=== PATIENT | male | born 1930 | race Caucasian/White ===

== ENCOUNTER 2016-11-30 07:30 | Emergency (ER) | payer MEDICARE, MEDICAID ==
[2016-11-30] MEDS ORDERED: Acetaminophen/HYDROcodone 325-5 MG Tab PO ONE (08:15)
--- NOTE | 2016-11-30 08:36 | EDM.PDOC ---
ED HPI GENERAL MEDICAL PROBLEM - General Chief Complaint: Back Pain or Injury Stated Complaint: BACK PAIN TROUBLE BREATHING Time Seen by Provider: 11/30/16 07:43 Source of Information: Reports: Patient History Limitations: Reports: No Limitations - History of Present Illness INITIAL COMMENTS - FREE TEXT/NARRATIVE: The patient is an 86-year-old male with a history of multiple medical problems who comes in today with upper back pain. 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 The pain is constant, sharp, located in the middle of his upper back, worse with movement, especially arm movements. He feels a little bit short of breath from the pain. Mild pain in his back with deep inspiration. No cough. No numbness or tingling. He also has bilateral shoulder pain, which she has had for a long time and is also severe. He's been taking tramadol for pain with not much relief. He also tried physical therapy this last week but states that it was very painful and seemed to make it worse instead of better. No fever or recent illness, no chest pain or cough. No falls. Lives with family members. Was unable to get into see his primary doctor this morning so came here. Middle Back Pain Score (Numeric/FACES): 8 - Related Data Allergies Allergy/AdvReac Type Severity Reaction Status Date / Time No Known Allergies Allergy Verified 11/30/16 07:37 Home Meds: Home Meds Acetaminophen [Tylenol Arthritis Pain] 650 mg PO Q6H PRN 06/07/14 [History] Amiodarone [Cordarone] 200 mg PO DAILY 06/07/14 [History] RX: Carvedilol [Coreg] 12.5 mg PO BID 06/07/14 [History] RX: Furosemide [Lasix] 60 mg PO DAILY 06/07/14 [History] RX: Levothyroxine 200 mcg PO ACBRK 06/07/14 [History] Warfarin [Coumadin] 4 mg PO SUTUTHSA 06/07/14 [History] atorvaSTATin [Lipitor] 10 mg PO BEDTIME 06/07/14 [History] RX: traMADol [Ultram] 50 tab PO BID PRN 03/12/15 [History] Hydrocodone/Acetaminophen [Hydrocodon-Acetaminophen 5-325] 1 each PO TID PRN # 15 tablet 11/30/16 [Rx] Spironolactone [Aldactone] 12.5 mg PO DAILY 11/30/16 [History] Warfarin [Coumadin] 2 mg PO MOWEFR 11/30/16 [History] Past Medical History Cardiovascular History: Reports: Arrhythmia, Automatic Implantable Cardioverter Defibrillators, Cardiomyopathy, High Cholesterol, Pacemaker, Prior Cardiac Arrest Other Cardiovascular History: About 12 years ago Genitourinary History: Reports: Prostate Disorder Other Genitourinary History: takes diuretics Musculoskeletal History: Reports: Arthritis Endocrine/Metabolic History: Reports: Hypothyroidism Hematologic History: Reports: Other (See Below) Other Hematologic History: coumadin therapy - Past Surgical History Cardiovascular Surgical History: Reports: AICD, Pacer Social & Family History - Family History Cardiac: Reports: [place] - Tobacco Use Smoking Status *Q: Former Smoker Years of Tobacco use: 30 Used Tobacco, but Quit: No Month Tobacco Last Used: 04/1969 Second Hand Smoke Exposure: No - Alcohol Use Days Per Week of Alcohol Use: 7 Number of Drinks Per Day: 1 Total Drinks Per Week: 7 - Recreational Drug Use Recreational Drug Use: No ED ROS GENERAL - Review of Systems Review Of Systems: See Below Constitutional: Denies: Fever Respiratory: Reports: Shortness of Breath Cardiovascular: Denies: Chest Pain Endocrine: Reports: No Symptoms GI/Abdominal: Denies: Abdominal Pain Musculoskeletal: Reports: Shoulder Pain, Back Pain Skin: Reports: No Symptoms Neurological: Denies: Paresthesia, Tingling, Weakness ED EXAM, UPPER BACK/NECK PAIN - Physical Exam Exam: See Below Exam Limited By: No Limitations General Appearance: Alert, WD/WN, No Apparent Distress Eye Exam: Bilateral Eye: Normal Inspection Ears Exam: Normal External Exam Nose Exam: Normal Inspection Throat/Mouth Exam: Normal Inspection, Normal Voice, No Airway Compromise Head Exam: Atraumatic, Normocephalic Neck Exam: Non-Tender, Full Range of Motion, Normal Alignment, Normal Inspection Cardiovascular/Respiratory: Regular Rate, Rhythm, Normal Breath Sounds, No Respiratory Distress, Other (no anterior chest wal tenderness) GI/Abdominal: Soft, Non-Tender. No: Rebound Back Exam: Other (skin normal, no masses/deformities, +midline TTP lower thoracic spine,no step offs/deformities, +paraspinal TTP throughout lower T spine bilat, skin normal, no fluctuance) Extremities: Normal Inspection, Other (bilat shoulder pain with any ROM of the arms, no shoulder deformity) Neurologic: No Motor/Sensory Deficits, Alert, Normal Mood/Affect, Oriented x 3 Psychiatric: Normal Affect, Normal Mood Skin Exam: Normal Color, Warm/Dry Course - Vital Signs Last Recorded V/S: Last Vital Signs Temp 36.3 C 11/30/16 07:37 Pulse 83 11/30/16 07:37 Resp 20 11/30/16 07:37 BP 139/95 H 11/30/16 07:37 Pulse Ox 94 L 11/30/16 07:37 - Orders/Labs/Meds Meds: Medications Discontinued Medications Generic Name Dose Route Start Last Admin Trade Name Freq PRN Reason Stop Dose Admin Hydrocodone Bitart/Acetaminophen 1 tab 11/30/16 08:15 11/30/16 08:43 [place] 325-5 Mg PO 11/30/16 08:16 1 tab ONETIME ONE Administration - Re-Assessments/Exams Free Text/Narrative Re-Assessment/Exam: 11/30/16 10:12 Chest x-ray shows no acute abnormality, cardiomegaly similar to prior. Thoracic spine x-rays showed to compression deformities that do appear to be worse compared to prior imaging. I suspect that these may be the source of the patient 's pain, though there is no history of fall or direct trauma. His history and exam definitely suggest a musculoskeletal etiology. He was given a hydrocodone here in the emergency department and had significant relief of his pain. Discussed risks of these medications at length, given elderly patient with multiple comorbidities there are certainly asks associated with using stronger pain medications, however patient has been miserable with pain and would like to try the hydrocodone which he will use sparingly. He does live with family members who can help him out at home. Also suggested that he follow-up with Dr. Hurd and Dr. Cornell for further care. Discussed return precautions. Departure - Departure Time of Disposition: 10:03 Disposition: Home, Self-Care 01 Clinical Impression: Compression of thoracic vertebra Qualifiers: Encounter type: initial encounter Fracture type: closed Qualified Code(s): S22.000A - Wedge compression fracture of unspecified thoracic vertebra, initial encounter for closed fracture - Discharge Information Prescriptions: Hydrocodone/Acetaminophen [Hydrocodon-Acetaminophen 5-325] 1 each PO TID PRN # 15 tablet PRN Reason: Pain Referrals: Kiel Cornell MD [Primary Care Provider] - Forms: ED Department Discharge Additional Instructions: 1. Take hydrocodone as needed for pain INSTEAD of tramadol - don't take both a the same time. Be aware that this medication may make you more sleepy, dizzy, or unsteady on your feet. 2. Rest. No heavy lifting. No more physical therapy until cleared by Dr. Cornell. 3. Follow up with Dr. Hurd to discuss whether any intervention for compression deformities in your spine might be beneficial. You may call [phone] to schedule with him. 4. Also follow up with Dr. Cornell early next week if possible. 5. Return to the Emergency Department if you have worsening pain, shortness of breath, chest pain, difficulty walking, or any other concerning symptoms.
--- NOTE | 2016-11-30 09:37 | CR ---
Chest: Two views of the chest were obtained. Comparison: Previous chest x-ray of 09/15/15. Heart is enlarged. Tortuous thoracic aorta is seen. AICD is present. Lungs are clear with no acute infiltrates. Bony structures are grossly intact. There is evidence of previous vertebroplasty within the upper lumbar spine. Impression: 1. Incidental findings as noted above which are stable. Nothing acute is appreciated. Diagnostic code #2
--- NOTE | 2016-11-30 09:47 | CR ---
Thoracic spine: AP, lateral and swimmer's views of the thoracic spine were obtained. Comparison: Previous CT thoracic spine study of 03/12/15. Scoliosis is present within the spine. Diffuse endplate osteophytes are seen. Two moderately severe severe compression deformities are seen within the mid thoracic spine which has increased in severity from previous exam. Other vertebral body heights appear maintained. Bony structures are osteopenic. Impression: 1. Two moderately severe compression deformities within the mid thoracic spine which have progressed in severity from prior studies. 2. Mild scoliosis and degenerative change as well as osteopenia. Diagnostic code #3
[2016-11-30 10:27] VITALS: BP 128/82
== END 2016-11-30 10:29 | disposition home or self-care (01) ==
LOC: JD.ED 07:30
DX: S22.000A Wedge compression fracture of unspecified thoracic vertebra, initial encounter for closed fracture (principal); E78.00 Pure hypercholesterolemia, unspecified; E03.9 Hypothyroidism, unspecified; Z79.899 Other long term (current) drug therapy; Z79.01 Long term (current) use of anticoagulants; Z87.891 Personal history of nicotine dependence; X58.XXXA Exposure to other specified factors, initial encounter
CPT/HCPCS: 71020; 72072; 99283; A9270

== ENCOUNTER 2016-12-14 18:09 | Emergency (ER) | payer MEDICARE, MEDICAID ==
--- NOTE | 2016-12-14 19:21 | EDM.PDOC ---
ED HPI GENERAL MEDICAL PROBLEM - General Chief Complaint: Respiratory Problem Stated Complaint: FLUID COMING OFF LEGS Time Seen by Provider: 12/14/16 18:41 Source of Information: Reports: Patient, Family (daughters) History Limitations: Reports: No Limitations - History of Present Illness INITIAL COMMENTS - FREE TEXT/NARRATIVE: 86-year-old gentleman presents for evaluation and treatment of drainage from the left lower leg. Reports that it started earlier today. Reports clear drainage from the left lower leg. He denies any erythema to the leg. He denies any pain to leg but he is on narcotic pain medication for chronic back pain. The patient is on Coumadin for A. fib. He has been off his Coumadin since Saturday as he is planning on having a kyphoplasty done in [place] on Saturday. Chronic edema to the bilateral legs. Patient has a significant cardiac history. He has an implanted pacemaker. Has significant heart failure and sees cardiology regularly. Reports he checks his weight daily but did not do so today. Treatments CLIENT EXPERIENCE SPECIALIST: Reports: Other (see below) Other Treatments CLIENT EXPERIENCE SPECIALIST: percocet qid Lower Leg Pain Score (Numeric/FACES): 3 - Related Data Allergies Allergy/AdvReac Type Severity Reaction Status Date / Time No Known Allergies Allergy Verified 11/30/16 07:37 Home Meds: Home Meds Acetaminophen [Tylenol Arthritis Pain] 650 mg PO Q6H PRN 06/07/14 [History] Amiodarone [Cordarone] 200 mg PO DAILY 06/07/14 [History] Carvedilol [Coreg] 12.5 mg PO BID 06/07/14 [History] Furosemide [Lasix] 60 mg PO DAILY 06/07/14 [History] Levothyroxine 200 mcg PO ACBRK 06/07/14 [History] Warfarin [Coumadin] 4 mg PO SUTUTHSA 06/07/14 [History] atorvaSTATin [Lipitor] 10 mg PO BEDTIME 06/07/14 [History] traMADol [Ultram] 50 tab PO BID PRN 03/12/15 [History] Spironolactone [Aldactone] 12.5 mg PO DAILY 11/30/16 [History] Warfarin [Coumadin] 2 mg PO MOWEFR 11/30/16 [History] Enoxaparin [Lovenox] 84 mg SUBCUT Q12HR #9 syringe 12/14/16 [Rx] Hydrocodone/Acetaminophen [Hydrocodon-Acetaminophen 5-325] 1 each PO QID PRN [History] Past Medical History Cardiovascular History: Reports: Arrhythmia, Automatic Implantable Cardioverter Defibrillators, Cardiomyopathy, High Cholesterol, Pacemaker, Prior Cardiac Arrest Other Cardiovascular History: About 12 years ago Genitourinary History: Reports: Prostate Disorder Other Genitourinary History: takes diuretics Musculoskeletal History: Reports: Arthritis Endocrine/Metabolic History: Reports: Hypothyroidism Hematologic History: Reports: Other (See Below) Other Hematologic History: coumadin therapy - Past Surgical History Cardiovascular Surgical History: Reports: AICD, Pacer Social & Family History - Family History Cardiac: Reports: [place] - Tobacco Use Smoking Status *Q: Former Smoker Years of Tobacco use: 30 Used Tobacco, but Quit: Yes Month Tobacco Last Used: 1963 Second Hand Smoke Exposure: No - Caffeine Use Caffeine Use: Reports: Coffee, Soda, Tea - Alcohol Use Days Per Week of Alcohol Use: 7 Number of Drinks Per Day: 1 Total Drinks Per Week: 7 - Recreational Drug Use Recreational Drug Use: No ED ROS GENERAL - Review of Systems Review Of Systems: See Below Constitutional: Reports: Other (did not weigh self todya; normal daily weights) . Denies: Fever Respiratory: Reports: Shortness of Breath (chronic) Cardiovascular: Reports: Edema. Denies: Chest Pain Musculoskeletal: Denies: Leg Pain Skin: Reports: Other (reports clear drainage from several spots on the left lower leg) ED EXAM, GENERAL - Physical Exam Exam: See Below Exam Limited By: No Limitations General Appearance: Alert, WD/WN, No Apparent Distress Respiratory/Chest: Other (tachypneaic, labored breathing) Cardiovascular: Other (dorsalis pedis and posterior tibialis pulses obscured by edema) Extremities: Pedal Edema (3+ pitting edema bilaterally) Neurological: Alert, Oriented, Normal Cognition Psychiatric: Normal Affect, Normal Mood Skin Exam: Warm, Dry, Normal Color. No: Erythema EKG INTERPRETATION EKG Date: 12/14/16 Time: 18:45 EKG Interpretation Comments: ventricular paced rhythm at 75 bpm. LBBB. Reviewed by myself and Dr. Stratton. Course - Vital Signs Last Recorded V/S: Last Vital Signs Temp 36.6 C 12/14/16 18:26 Pulse 81 12/14/16 23:30 Resp 22 H 12/14/16 23:30 BP 147/74 H 12/14/16 23:30 Pulse Ox 95 12/14/16 23:30 - Orders/Labs/Meds Labs: Laboratory Tests 12/14/16 12/14/16 12/14/16 Range/Units 19:10 19:19 19:19 WBC 5.29 (4.23-9.07) K/mm3 RBC 3.43 L (4.63-6.08) M/mm3 Hgb 11.8 L (13.7-17.5) gm/L Hct 36.5 L (40.1-51.0) % MCV 106.4 H (79.0-92.2) fl MCH 34.4 H (25.7-32.2) pg MCHC 32.3 (32.2-35.5) g/dl RDW Std Deviation 55.3 H (35.1-43.9) fL Plt Count 295 (163-337) K/mm3 MPV 8.7 L (9.4-12.3) fl Neutrophils % (Manual) 77 H (40-60) % Band Neutrophils % 0 (0-10) % Lymphocytes % (Manual) 18 L (20-40) % Atypical Lymphs % 0 % Monocytes % (Manual) 3 (2-10) % Eosinophils % (Manual) 2 (0.8-7.0) % Basophils % (Manual) 0 L (0.2-1.2) Platelet Estimate Adequate Poikilocytosis 1+ slight Anisocytosis 1+ slight PT 18.8 H (8.0-13.0) SECONDS INR 1.67 Sodium 138 (136-145) mEq/L Potassium 4.6 (3.5-5.1) mEq/L Chloride 105 (98-107) mEq/L Carbon Dioxide 24 (21-32) mEq/L Anion Gap 13.6 (5-15) BUN 27 H (7-18) mg/dL Creatinine 1.3 (0.7-1.3) mg/dL Est Cr Clr Drug Dosing 41.54 mL/min Estimated GFR (MDRD) 52 (>60) mL/min BUN/Creatinine Ratio 20.8 H (14-18) Glucose 121 H (83-115) mg/dL Calcium 8.6 (8.5-10.1) mg/dL Total Bilirubin 0.5 (0.2-1.0) mg/dL AST 31 (15-37) U/L ALT 32 (16-63) U/L Alkaline Phosphatase 96 (46-116) U/L [id number] Pept 5392 H (0-450) pg/mL Total Protein 6.3 L (6.4-8.2) g/dl Albumin 3.0 L (3.4-5.0) g/dl Globulin 3.3 gm/dL Albumin/Globulin Ratio 0.9 L (1-2) Meds: Medications Discontinued Medications Generic Name Dose Route Start Last Admin Trade Name Freq PRN Reason Stop Dose Admin Enoxaparin Sodium 84 mg 12/14/16 22:08 12/14/16 23:20 Lovenox SUBCUT 12/14/16 22:09 Not Given ONETIME ONE Enoxaparin Sodium 84 mg 12/14/16 22:55 12/14/16 23:05 Lovenox SUBCUT 12/14/16 22:56 84 mg ONETIME ONE Administration - Radiology Interpretation Free Text/Narrative:: left leg duplex ultrasound impression per [facility]: Deep venous thrombosis of the left popliteal vein. chest xray shows significant cardiomegaly. implanted pace maker present. - Re-Assessments/Exams Free Text/Narrative Re-Assessment/Exam: 12/15/16 22:32 Labs returned. Hear failure is significant with a pro-BNP of 5392 and significant cardiomegaly on chest xray. Case discussed with dr. Stratton. Recommended canceling his surgery planned for Saturday. Restart his coumadin at his previous dose and bridge 5 days with lovenox bid. I reviewed the labs and imaging studies with the patient and his daughters. Lovenox subQ ordered for the ER tonight. Daughters feel he should be admitted. I had nursing staff run an [facility] on his case. He does not qualify for inpatient. I informed them I can talk to the hospitalist about an observation stay, however, this could be costly. I feel he is safe going home. One of the daughters is able to administer the lovenox for him and they have his coumadin at home. Decided to discharge him home tonight. Discharge instructions as documented. Departure - Departure Time of Disposition: 22:36 Disposition: Home, Self-Care 01 Condition: Fair Clinical Impression: Deep venous thrombosis Qualifiers: DVT location: lower extremity Affected thrombotic vein of extremity: popliteal Chronicity: unspecified Laterality: left Qualified Code(s): I82.432 - Acute embolism and thrombosis of left popliteal vein - Discharge Information Prescriptions: Enoxaparin [Lovenox] 84 mg SUBCUT Q12HR #9 syringe Instructions: Deep Vein Thrombosis Referrals: Kiel Cornell MD [Primary Care Provider] - Forms: ED Department Discharge Additional Instructions: Restart your Coumadin tonight. Take the Lovenox as prescribed. one subcutaneous injection twice a day for 5 days. your first injection was given in the ER tonight. Your next injection should be tomorrow morning around 10:30. Continue with your current plan of care. I recommend you follow-up with your primary care provider this week for a recheck of your symptoms. Please return to the ER if your symptoms change or worsen.
[2016-12-14] MEDS ORDERED: Enoxaparin 80 MG/0.8 ML Syringe SUBCUT ONE (22:08)
[2016-12-14] MEDS ORDERED: Enoxaparin 100 MG/1 ML Syringe SUBCUT ONE (22:55)
[2016-12-15 00:57] VITALS: BP 147/74
--- NOTE | 2016-12-18 10:32 | CR ---
Chest: Frontal view of the chest was obtained. Comparison: Previous chest x-ray of 11/30/16. Heart is enlarged. AICD is present. Mild atherosclerotic change is noted within an ectatic aorta. Lungs are clear. Bony structures are osteopenic. Findings of chronic rotator cuff tears are partially seen within both shoulders. Impression: 1. Stable findings as described above. Nothing acute is appreciated. Diagnostic code #2
--- NOTE | 2016-12-18 10:32 | US ---
Left lower extremity deep venous ultrasound: Duplex and color flow imaging was obtained of the left common femoral, proximal greater saphenous, superficial femoral, popliteal, posterior tibial and peroneal veins. Right common femoral vein was also evaluated. Findings: Echogenic material is identified within the left popliteal vein. This is most likely due to old thrombus. Other veins show normal phasic flow, augmentation and compression. Impression: 1. 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 2. No additional abnormality is identified on left lower extremity deep venous ultrasound exam. Diagnostic code #3 Mostly agree with preliminary report issued by [facility], I believe thrombus within the left popliteal vein is old and fibrotic, ([facility] preliminary report dictated on 12/14/16, 10:08 PM Central Time)
== END 2016-12-14 23:30 | disposition home or self-care (01) ==
LOC: JD.ED 18:09
DX: I82.432 Acute embolism and thrombosis of left popliteal vein (principal); E03.9 Hypothyroidism, unspecified; Z79.01 Long term (current) use of anticoagulants; Z79.899 Other long term (current) drug therapy; E78.00 Pure hypercholesterolemia, unspecified; Z95.0 Presence of cardiac pacemaker; Z87.891 Personal history of nicotine dependence; Z95.810 Presence of automatic (implantable) cardiac defibrillator
CPT/HCPCS: 36415; 71010; 80053; 83880; 85025; 85610; 93005; 93971; 96372; 99285; J1650; 99284

== ENCOUNTER 2017-10-24 15:43 | Emergency (ER) | payer MEDICAID, MEDICARE ==
[2017-10-24 16:05] VITALS: BP 114/91
--- NOTE | 2017-10-24 17:20 | EDM.PDOC ---
ED HPI GENERAL MEDICAL PROBLEM - General Chief Complaint: Back Pain or Injury Stated Complaint: FELL AND HURT BACK AND ELBOWS Time Seen by Provider: 10/24/17 17:09 Source of Information: Reports: Patient History Limitations: Reports: No Limitations - History of Present Illness INITIAL COMMENTS - FREE TEXT/NARRATIVE: 86-year-old male presents to the ED after a fall at home. He states he was bending over into his closet 2 per crop picker his shoes. He stood back up and fell directly backwards. He believes he struck his right upper back on a doorknob. He did not hit his head on the floor did not lose consciousness. He also fell on his bike and has some pain in his right posterior buttock and hip area. He can still walk. The problem is he is on Coumadin and bruits bruises very easily. He has had numerous compression fractures in his thoracic spine in clinic kyphoplasty 1. His heart is so bad that they cannot do any further surgery on him. He has a defibrillator pacemaker in place. He suffered skin tears to both aspects of his elbows from the fall as he landed on his elbows as well. Onset: Today Onset Date: 10/24/17 Onset Time: 15:25 Duration: Minutes: Location: Reports: Back (Left upper back right lower back.), Upper Extremity, Left, Upper Extremity, Right (Skin tear left elbow area skin tear right elbow area.) Quality: Reports: Ache, Throbbing Severity: Moderate (I'll dictate his left upper back adjacent to his shoulder blade and right buttock hip area.) Improves with: Reports: None Worsens with: Reports: Movement (Movement and walking hurts worse. He states pain isn't as bad now as it was initially.) Context: Reports: Trauma (Fall at home.) Associated Symptoms: Reports: Shortness of Breath. 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) (None.) Back Pain Score (Numeric/FACES): 2 - Related Data Allergies Allergy/AdvReac Type Severity Reaction Status Date / Time No Known Allergies Allergy Verified 06/28/18 16:05 Home Meds: Home Meds Acetaminophen [Tylenol Arthritis Pain] 650 mg PO Q6H PRN 06/07/14 [History] Amiodarone [Cordarone] 200 mg PO DAILY 06/07/14 [History] Carvedilol [Coreg] 12.5 mg PO BID 06/07/14 [History] Furosemide [Lasix] 60 mg PO DAILY 06/07/14 [History] Levothyroxine 200 mcg PO ACBRK 06/07/14 [History] Warfarin [Coumadin] 4 mg PO SUTUTHSA 06/07/14 [History] atorvaSTATin [Lipitor] 10 mg PO BEDTIME 06/07/14 [History] traMADol [Ultram] 50 tab PO BID PRN 03/12/15 [History] Spironolactone [Aldactone] 12.5 mg PO DAILY 11/30/16 [History] Warfarin [Coumadin] 2 mg PO MOWEFR 11/30/16 [History] Enoxaparin [Lovenox] 84 mg SUBCUT Q12HR #9 syringe 12/14/16 [Rx] Hydrocodone/Acetaminophen [Hydrocodon-Acetaminophen 5-325] 1 each PO QID PRN [History] Past Medical History Cardiovascular History: Reports: Arrhythmia, Automatic Implantable Cardioverter Defibrillators, Cardiomyopathy, High Cholesterol, Pacemaker, Prior Cardiac Arrest Other Cardiovascular History: About 12 years ago Genitourinary History: Reports: Prostate Disorder Other Genitourinary History: takes diuretics Musculoskeletal History: Reports: Arthritis, Osteoarthritis, Osteoporosis, Other (See Below) (Patient has had multiple compression fractures in his thoracic and lumbar spine. He's had kyphoplasty 1.) Endocrine/Metabolic History: Reports: Hypothyroidism Hematologic History: Reports: Other (See Below) Other Hematologic History: coumadin therapy - Past Surgical History Cardiovascular Surgical History: Reports: AICD, Pacer Social & Family History - Family History Cardiac: Reports: [place] - Caffeine Use Caffeine Use: Reports: Coffee, Soda, Tea - Living Situation & Occupation Living situation: Reports: Occupation: Retired ED ROS GENERAL - Review of Systems Review Of Systems: See Below Constitutional: Reports: Malaise, Fatigue. Denies: Fever, Chills, Weight Loss HEENT: Reports: Glasses, Hearing Loss Respiratory: Reports: Shortness of Breath (Mildly hard of hearing.), Cough ( Nonproductive). Denies: Wheezing, Pleuritic Chest Pain Cardiovascular: Reports: Blood Pressure Problem, Dyspnea on Exertion ( Chronically), Edema, Lightheadedness (Often gets lightheaded when he stands up.) . Denies: Claudication, Orthopnea (On medication for his blood pressure) Endocrine: Reports: Fatigue (Lower extremities at times) GI/Abdominal: Reports: Constipation : Reports: Frequency, Other (Known BPH. Nocturia usually 3) Musculoskeletal: Reports: Back Pain (Left upper back pain more in the midline but adjacent to the left scapula also pain right lower back on the iliac crest buttock area.), Other (Skin tears to both elbow areas today.) Skin: Reports: Other (Patient suffered skin tears to both elbows from his fall today.) Neurological: Reports: Dizziness (Happens quite often when he stands up. Clinically has a component of vertebrobasilar insufficiency. I suspect that when he looks up or down he may lose his balance), Difficulty Walking (Walks with difficulty due to arthritic changes in his hips and knees.) Psychiatric: Reports: No Symptoms Hematologic/Lymphatic: Reports: No Symptoms Immunologic: Reports: No Symptoms ED EXAM, UPPER BACK/NECK PAIN - Physical Exam Exam: See Below Exam Limited By: No Limitations General Appearance: Alert, WD/WN, Mild Distress Eye Exam: Bilateral Eye: Normal Inspection Head Exam: Atraumatic, Normocephalic Neck Exam: Non-Tender, Normal Alignment, Normal Inspection, Limited Range of Motion (Limited range of motion.). No: Painful Range of Motion, Paraspinous Muscle Tender Nexus Criteria: No: Posterior, Midline Cervical Tenderness ( He states this is normal range. Has no pain in his neck), Painful Distraction Injuries Cardiovascular/Respiratory: Regular Rate, Rhythm, No M/R/G, Normal Peripheral Pulses, Other (He has a defibrillator pacemaker implanted left upper anterior chest.) GI/Abdominal: Normal Bowel Sounds, Soft, Non-Tender, No Organomegaly, No Abnormal Bruit, No Mass Back Exam: Other (Examination of the back reveals a hematoma and bruising occurring adjacent to his thoracic 34 and 5 vertebra left upper back adjacent to the scapula. There is a hematoma proximally 6 cm in length and 3 cm in width. On his right lower back there is a mild bruise forming over the posterior iliac crest. Pain localized to that area. He has pain to poke palpation of his lumbar spine as he fell seek first as well as his back.) Extremities: Other (He has full pronation supination of both wrists and elbows. He has skin tears to his elbows that are superficial and nothing that is amenable to sutures.) Neurologic: No Motor/Sensory Deficits, Alert, Normal Mood/Affect, Oriented x 3 Psychiatric: Normal Affect Skin Exam: Other (He has multiple ecchymoses from being on Coumadin especially on his dorsal hands and forearms. Skin tear to the left forearm elbow area is worse than the right one. It is approximately 2.5 cm in length and a good half centimeter in width. Skin is been peeled and will be debrided off. Enteric to the right elbow is approximately 1.5 cm in length and 4 mm in width. It is very superficial. Once be cleansed and topical antibiotic placed. They will not be Steri-Stripped.) Course - Vital Signs Last Recorded V/S: Last Vital Signs Temp 36.7 C 10/24/17 16:01 Pulse 61 10/24/17 16:01 Resp 18 10/24/17 16:01 BP 114/91 H 10/24/17 16:01 Pulse Ox 95 10/24/17 16:01 - Orders/Labs/Meds Orders: Active Orders 24 hr Category Date Time Status Lumbar Spine wo Cont [CT] Stat Exams 10/24/17 17:09 Taken Thoracic Spine wo Cont [CT] Stat Exams 10/24/17 17:09 Taken - Radiology Interpretation Free Text/Narrative:: 86-year-old male presents to the ED for evaluation after a fall at home. He states he was bending over into his closet to get his shoes and when he stood back up he fell directly backwards. He hit the door with the doorknob to his left upper back adjacent to thoracic 34 and 5 vertebra and adjacent to his left scapula. He also fell seat first and has some pain over his right buttock particular the posterior iliac crest and upper buttock area. Examination reveals hematoma forming over the left upper back and midline lower thoracic 34 and 5. Minimal bruising is appreciated in his right lower buttock. He has pain throughout palpation of his thoracic and lumbar spine. He is known to have at least 2 if not 3 compression fractures in his back and he said previous kyphoplasty he has superficial skin tears to both elbows from his falls which will be cleansed and topical antibiotic placed. The nothing that is amenable to suturing. Plan will be to CT his thoracic and lumbar spine. - Re-Assessments/Exams Free Text/Narrative Re-Assessment/Exam: 10/24/17 18:28: CT of his thoracic and lumbar spine reveals advanced degenerative changes throughout. No acute fractures are identified. There is a old compression fracture at thoracic 6 and at lumbar 2. Compression fracture at T6 estimated to be at least 50% with increased density of the vertebral body. Coincidentally there are cystic changes noted within the left kidney which is very atrophic. Lumbar spine demonstrates extensive moderate degenerative changes at multiple levels. There is anterior bridging noted at L1 and L2 with near ankylosis. Vacuum disc phenomenon present at at L3-L4 and L4-L5 levels. Moderate disc space narrowing noted L3-L4 and L4-L5 and L5-S1 levels. Facet joint arthropathy noted at multiple levels. Also a compression fracture at lumbar 2. Of note there is sclerosis of the right sacral alae. Degenerative changes are appreciated throughout both SI joints as well. Vasculature demonstrates diffuse moderate atherosclerotic calcification. There is been previous vertebral plasty changes in the mid body of L2. No new fractures are identified. Patient and daughter reassured. He will be discharged to home to continue his current medications. He is on high-dose pain medications at this time I will continue them as needed. Follow-up with primary care physician if any further problems occur Departure - Departure Time of Disposition: 17:59 Disposition: Home, Self-Care 01 Condition: Fair (Fall at home) Clinical Impression: Fall as cause of accidental injury at home as place of occurrence Qualifiers: Encounter type: initial encounter Qualified Code(s): W19.XXXA - Unspecified fall, initial encounter Contusion of upper back excluding scapular region Qualifiers: Encounter type: initial encounter Laterality: left Qualified Code(s): S20.222A - Contusion of left back wall of thorax, initial encounter - Discharge Information Instructions: Contusion Referrals: Kiel Cornell MD [Primary Care Provider] - Forms: ED Department Discharge Additional Instructions: Evaluation in the emergency room today in regards to a fall at home. Us assess suspect this is due to vertebrobasilar insufficiency which means when you touch her head all the way down or bend over and then stand up or tilts her head all the way backwards U Lucier balance causing her to fall backwards. This is what occurred at home today. Luckily he did not hit the back of your head. You have a contusion to left upper back over the upper back bones and musculature adjacent to the shoulder blade on the left side. There is a hematoma or collection of blood forming under the skin in this area because of being on Coumadin. Really hurt her lower back primarily the right hip area. There is a small bruise coming up in this area as well. CTs of your thoracic and lumbar spine were carried out in the emergency department. They show no new fractures. You have terrible degenerative arthritis throughout the entire thoracic and lumbar spine. You have compression fractures of thoracic 6 and lumbar 2 vertabrae. But again the hip itself looked okay in the pelvis is intact. He suffered skin tears to both elbow areas. These wounds were cleansed and debrided and treatment is to daily cleanse the areas with soap and water and apply topical antibiotic such as bacitracin or Polysporin to the wounds once or twice daily until they are healed. Continue all current medications as before. - My Orders Last 24 Hours: My Active Orders 10/24/17 17:09 Lumbar Spine wo Cont [CT] Stat Thoracic Spine wo Cont [CT] Stat - Assessment/Plan Last 24 Hours: My Active Orders 10/24/17 17:09 Lumbar Spine wo Cont [CT] Stat Thoracic Spine wo Cont [CT] Stat
--- NOTE | 2017-10-25 07:07 | CT ---
CT lumbar spine Technique: Prior lumbar spine plain film study of 06/07/14. Findings: Compression deformity is seen of L2. This has worsened from prior plain film study but shows evidence of vertebroplasty cement and is therefore likely old. Vacuum phenomena is noted within the L3-L4, L4-L5 and L5-S1 discs. Evidence of annular rupture with a small amount of epidural air is seen posterior to L3. Severe disc space narrowing is noted at L5-S1. Posterior disc space narrowing noted at L3-L4 and L4-L5. Other vertebral body heights are maintained. Posterior vertebral line shows posterior bulging by about 7 mm into the central canal. Finding causes mild central canal stenosis. Degenerative change is noted within the apophyseal joints most prominent at L3-L4 and L4-L5. No fracture is seen. No abnormal spondylolisthesis is seen. Degenerative change noted within both sacroiliac joints. Incidental atherosclerotic calcification is seen within the aortoiliac vessels. Right adrenal nodule is seen measuring 2.6 cm in size. This is identified on prior abdominal and pelvic CT study of 11/25/12 and appears stable and is therefore incidental. Impression: 1. 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 2. Degenerative change as noted above. 3. No acute fracture or acute subluxation is seen. Diagnostic code #3 Agree with preliminary report issued by [facility] ([facility] preliminary report dictated on 10/24/17, 7:35 PM Central Time)
--- NOTE | 2017-10-25 07:11 | CT ---
CT thoracic spine Technique: Multiple axial sections through the thoracic spine were obtained. Reconstructed coronal and sagittal images were obtained. Comparison: Previous plain film thoracic spine study of 11/30/16. Findings: Severe compression deformity is seen of T6. Moderately severe compression deformities at T4 and T5 are noted. T4 and T5 compression deformities appear to be old with T6 compression deformity being an interval change from previous study. Other vertebral body heights within the thoracic spine are maintained. Scattered disc space narrowing is noted within the cervical and thoracic spine. Mild retrolisthesis of the posterior vertebral line is seen at T6 by approximately 3.4 mm. No central canal stenosis is seen. Scattered degenerative change is noted throughout the apophyseal joints. No discrete bony neural foraminal stenosis is seen within the thoracic spine. Multilevel neural foraminal stenosis is seen within the cervical spine. Diffuse endplate osteophytes are seen. Incidental 2.7 cm cyst seen within left kidney. Stable right adrenal mass is noted. Impression: 1. Moderately severe compression deformities noted at T4 and T5 which appears stable. 2. Severe compression deformity of T6 which is an interval change from most recent thoracic spine study of 11/30/16. 3. Diffuse degenerative change within the cervical spine and thoracic spine. 4. Other incidental findings. Diagnostic code #3 Agree with preliminary report issued by [facility] ([facility] preliminary report dictated on 10/24/17, 7:40 PM Central Time)
== END 2017-10-24 18:20 | disposition home or self-care (01) ==
LOC: JD.ED 15:43
DX: S20.222A Contusion of left back wall of thorax, initial encounter (principal); Z79.899 Other long term (current) drug therapy; Z95.810 Presence of automatic (implantable) cardiac defibrillator; W18.39XA Other fall on same level, initial encounter; Y92.009 Unspecified place in unspecified non-institutional (private) residence as the place of occurrence of the external cause; Z79.01 Long term (current) use of anticoagulants
CPT/HCPCS: 72128; 72128-26; 72131; 72131-26; 99284-25

== ENCOUNTER 2017-11-04 12:19 | Inpatient (IN) | payer MEDICARE ==
--- NOTE | 2017-11-04 12:59 | EDM.PDOC ---
ED HPI GENERAL MEDICAL PROBLEM - General Chief Complaint: Back Pain or Injury Stated Complaint: BACK PAIN Time Seen by Provider: 11/04/17 12:56 Source of Information: Reports: Patient, Family (daughter) History Limitations: Reports: Physical Impairment (acute on chronic back pain) - History of Present Illness INITIAL COMMENTS - FREE TEXT/NARRATIVE: Christian is a pleasant 86yo male presents with his daughter for worsening back pain, intractable, weakness and multiple falls at home over the past few weeks, last one being last evening. He has been seen in [facility] with bone scan done last week according to daughter. Also according to daughter "his hear is so bad they can't do anything". He was placed on MS Contin every 12 hours in addition to his already scheduled tramadol and percocet. This is not helping his pain and pain is worsening over the past 2 days. He is urinating without problems, however he is not taking his diuretic as directed as it is "too hard for him to get to the bathroom" according to his daughter. He is moving his bowels, taking a stool softner but stool is "hard". No abd pain or nausea. No numbness/tingling to legs. He is very weak in his legs. He was last seen in this ED, seen by Dr. Stratton with worsening of chronic back pain after fall at home striking his mid back on the door knob and landing on his buttock. CT scans done on that date 10/24/17 showed old kyphoplasty at L2, moderate to severe but stable old compression fractures at T4-5, severe compression fracture to T6 with interval change from prior study done 11/30/17. It is after this that he was seeing specialist in [place]. Dr. Conrell is his PCP. He is living at home with and daughter caring for him. is also in poor health and daughter is unable to provide 24/7 care at this time. Onset: Gradual Duration: Week(s):, Chronic, Getting Worse Improves with: Reports: Rest Worsens with: Reports: Other (recurrent falls at home) Context: Reports: Trauma, Other (recurrent falls at home) lower back Pain Score (Numeric/FACES): 9 - Related Data Allergies Allergy/AdvReac Type Severity Reaction Status Date / Time No Known Allergies Allergy Verified 11/04/17 12:42 Home Meds: Home Meds Acetaminophen [Tylenol Arthritis Pain] 650 mg PO Q6H PRN 06/07/14 [History] Amiodarone [Cordarone] 200 mg PO DAILY 06/07/14 [History] Carvedilol [Coreg] 12.5 mg PO BID 06/07/14 [History] Furosemide [Lasix] 60 mg PO DAILY 06/07/14 [History] Levothyroxine 200 mcg PO ACBRK 06/07/14 [History] Warfarin [Coumadin] 4 mg PO SUTUTHSA 06/07/14 [History] atorvaSTATin [Lipitor] 10 mg PO BEDTIME 06/07/14 [History] traMADol [Ultram] 50 tab PO BID PRN 03/12/15 [History] Spironolactone [Aldactone] 12.5 mg PO DAILY 11/30/16 [History] Warfarin [Coumadin] 2 mg PO MOWEFR 11/30/16 [History] Acetaminophen/oxyCODONE [Percocet 325-5 MG] 1 each PO Q6H PRN 11/04/17 [History] Morphine [MS Contin] 15 mg PO BID 11/04/17 [History] Past Medical History HEENT History: Reports: Hard of Hearing, Impaired Vision Cardiovascular History: Reports: Arrhythmia, Automatic Implantable Cardioverter Defibrillators, Cardiomyopathy, High Cholesterol, Pacemaker, Prior Cardiac Arrest Other Cardiovascular History: About 12 years ago Genitourinary History: Reports: Prostate Disorder Other Genitourinary History: takes diuretics Musculoskeletal History: Reports: Arthritis, Back Pain, Chronic, Osteoarthritis , Osteoporosis, Other (See Below) Endocrine/Metabolic History: Reports: Hypothyroidism Hematologic History: Reports: Other (See Below) Other Hematologic History: coumadin therapy - Past Surgical History Cardiovascular Surgical History: Reports: AICD, Pacer Musculoskeletal Surgical History: Reports: Other (See Below) Other Musculoskeletal Surgeries/Procedures:: cement to spinal column Social & Family History - Family History Family Medical History: Noncontributory Cardiac: Reports: OK - Tobacco Use Smoking Status *Q: Former Smoker Used Tobacco, but Quit: No - Caffeine Use Caffeine Use: Reports: Coffee - Recreational Drug Use Recreational Drug Use: No - Living Situation & Occupation Living situation: Reports: Occupation: Retired ED ROS GENERAL - Review of Systems Review Of Systems: See Below Constitutional: Reports: Weakness, Fatigue, Decreased Appetite HEENT: Reports: No Symptoms Respiratory: Reports: No Symptoms. Denies: Shortness of Breath Cardiovascular: Reports: Dyspnea on Exertion (chronic- stable), Other (hx of CAD , AICD). Denies: Chest Pain, Lightheadedness, Palpitations GI/Abdominal: Reports: No Symptoms : Reports: No Symptoms Musculoskeletal: Reports: Back Pain (chronic- worsening; mid to low back) Skin: Reports: Bruising (multiple- on coumadin) Neurological: Reports: Pre-Existing Deficit (weakness but worsening), Difficulty Walking (worsening), Weakness (lower legs), Gait Disturbance (lower leg weakness and back pain). Denies: Numbness, Paresthesia, Tingling Psychiatric: Reports: No Symptoms Hematologic/Lymphatic: Reports: Easy Bruising (on coumadin) ED EXAM,LOWER BACK PAIN/INJURY - Physical Exam Exam: See Below Exam Limited By: No Limitations General Appearance: Alert, WD/WN, No Apparent Distress, Other (resting comfortably laying flat on stretcher) Eye Exam: Bilateral Eye: EOMI, PERRL Ears: Normal External Exam Nose: Normal Inspection Throat/Mouth: Normal Inspection, Normal Lips, Normal Voice Head: Atraumatic, Normocephalic Neck: Normal Inspection Respiratory/Chest: No Respiratory Distress, Lungs Clear, Normal Breath Sounds, Decreased Breath Sounds (bases) Cardiovascular: Regular Rate, Rhythm, Other (trace edema to right ankle, minimal to left. Skin tear to left knee with old healing skin tears to shins bilat.) GI/Abdominal: Normal Bowel Sounds, Soft, Non-Tender (Male) Exam: Deferred Rectal (Males) Exam: Deferred Back Exam: Normal Inspection, Vertebral Tenderness (mid to low back) Extremities: Normal Inspection, Normal Capillary Refill, Pedal Edema (trace to right ankle, minimal to left) Neurological: Alert Psychiatric: Normal Affect, Normal Mood Skin Exam: Ecchymosis, Wound/Incision (skin tear/abrasion to right knee cap. Healing abrasions to shins and forearms/hands bilaterally) Course - Vital Signs Last Recorded V/S: Last Vital Signs Temp 97.1 F 11/04/17 12:30 Pulse 67 11/04/17 14:09 Resp 20 11/04/17 14:09 BP 117/82 11/04/17 14:09 Pulse Ox 96 11/04/17 14:09 - Orders/Labs/Meds Orders: Active Orders 24 hr Category Date Time Status UA W/MICROSCOPIC [URIN] Stat Lab 11/04/17 15:05 Ordered Sodium Chloride 0.9% [Normal Saline] 1,000 ml Med 11/04/17 13:30 Active IV ASDIRECTED Medication Orders Sodium Chloride (Normal Saline) 1,000 mls @ 100 mls/hr IV ASDIRECTED KINJAL Last Admin: 11/04/17 14:09 Dose: 100 mls/hr Labs: Laboratory Tests 11/04/17 11/04/17 11/04/17 Range/Units 14:05 14:05 15:05 WBC 6.45 (4.23-9.07) K/mm3 RBC 3.56 L (4.63-6.08) M/mm3 Hgb 12.0 L (13.7-17.5) gm/L Hct 38.5 L (40.1-51.0) % MCV 108.1 H (79.0-92.2) fl MCH 33.7 H (25.7-32.2) pg MCHC 31.2 L (32.2-35.5) g/dl RDW Std Deviation 52.2 H (35.1-43.9) fL Plt Count 271 (163-337) K/mm3 MPV 9.0 L (9.4-12.3) fl Neut % (Auto) 74.9 H (34.0-67.9) % Lymph % (Auto) 12.6 L (21.8-53.1) % [place] % (Auto) 11.3 (5.3-12.2) % Eos % (Auto) 0.5 L (0.8-7.0) Baso % (Auto) 0.2 (0.1-1.2) % Neut # (Auto) 4.84 (1.78-5.38) K/mm3 Lymph # (Auto) 0.81 L (1.32-3.57) K/mm3 [place] # (Auto) 0.73 (0.30-0.82) K/mm3 Eos # (Auto) 0.03 L (0.04-0.54) K/mm3 Baso # (Auto) 0.01 (0.01-0.08) K/mm3 Manual Slide Review Abnormal smear Sodium 141 (136-145) mEq/L Potassium 4.7 (3.5-5.1) mEq/L Chloride 106 (98-107) mEq/L Carbon Dioxide 27 (21-32) mEq/L Anion Gap 12.7 (5-15) BUN 49 H (7-18) mg/dL Creatinine 1.7 H (0.7-1.3) mg/dL Est Cr Clr Drug Dosing 32.80 mL/min Estimated GFR (MDRD) 38 (>60) mL/min BUN/Creatinine Ratio 28.8 H (14-18) Glucose 111 (83-115) mg/dL Calcium 8.3 L (8.5-10.1) mg/dL Magnesium 2.3 (1.8-2.4) mg/dl Total Bilirubin 0.6 (0.2-1.0) mg/dL AST 38 H (15-37) U/L ALT 35 (16-63) U/L Alkaline Phosphatase 85 (46-116) U/L C-Reactive Protein 2.2 H* (<1.0) mg/dL Total Protein 6.2 L (6.4-8.2) g/dl Albumin 2.7 L (3.4-5.0) g/dl Globulin 3.5 gm/dL Albumin/Globulin Ratio 0.8 L (1-2) Urine Color Yellow (Yellow) Urine Appearance Clear (Clear) Urine pH 6.5 (5.0-8.0) Ur Specific [place] 1.020 (1.005-1.030) Urine Protein Negative (Negative) Urine Glucose (UA) Negative (Negative) Urine Ketones Negative (Negative) Urine Occult Blood Negative (Negative) Urine Nitrite Negative (Negative) Urine Bilirubin Negative (Negative) Urine Urobilinogen 4.0 H (0.2-1.0) Ur Leukocyte Esterase Negative (Negative) Urine RBC Not seen (0-5) /hpf Urine WBC 0-5 (0-5) /hpf Ur Epithelial Cells 0-5 (0-5) /hpf Urine Bacteria Not seen (FEW) /hpf Urine Mucus Not seen (FEW) /hpf Meds: Medications Generic Name Dose Route Start Last Admin Trade Name Freq PRN Reason Stop Dose Admin Sodium Chloride 1,000 mls @ 100 mls/hr 11/04/17 13:30 11/04/17 14:09 Normal Saline IV 100 mls/hr ASDIRECTED KINJAL Administration Discontinued Medications Generic Name Dose Route Start Last Admin Trade Name Marty PRN Reason Stop Dose Admin Morphine Sulfate 2 mg 11/04/17 13:23 11/04/17 14:09 Morphine IVPUSH 11/04/17 13:24 2 mg ONETIME ONE Administration - Re-Assessments/Exams Free Text/Narrative Re-Assessment/Exam: 11/04/17 15:13 Pain 7/10 initially lying flat on cart, states "a 7 is good". 2mg Morphine IVP given and pain down to 1. Nursing reports pain at 10/10 with movements and attempts to get UA. Free Text/Narrative Re-Assessment/Exam: 11/04/17 15:56 Case discussed and reviewed with Dr. Huerta. He is in agreement to admission for intractable back pain, weakness, frequent falls at home. Labs pending due to multiple traumas immediately after patient arrived. MCG meets for inpatient due to need for IV pain medication, which I feel will be needed initially to control his pain. Patient will be admitted inpatient for above noted dx. Departure - Departure Time of Disposition: 15:58 Disposition: Admitted As Inpatient 67 Condition: Fair Clinical Impression: Intractable low back pain, Frequent falls, Generalized weakness - Discharge Information Referrals: Kiel Cornell MD [Primary Care Provider] - Forms: ED Department Discharge - My Orders Last 24 Hours: My Active Orders 11/04/17 13:30 Sodium Chloride 0.9% [Normal Saline] 1,000 ml IV ASDIRECTED 11/04/17 15:05 UA W/MICROSCOPIC [URIN] Stat - Assessment/Plan Last 24 Hours: My Active Orders 11/04/17 13:30 Sodium Chloride 0.9% [Normal Saline] 1,000 ml IV ASDIRECTED 11/04/17 15:05 UA W/MICROSCOPIC [URIN] Stat
[2017-11-04] MEDS ORDERED: Morphine 2 MG/ML Syringe IVPUSH ONE (13:23)
[2017-11-04] MEDS: Sodium Chloride 0.9% 1,000 ML IV SCH (14:09)
[2017-11-04] MEDS: Morphine 2 MG/ML Syringe IVPUSH PRN (16:09)
[2017-11-04] MEDS ORDERED: Promethazine 6.25 MG in Sodium Chloride 0.9% 50 ML IV PRN (17:59)
[2017-11-04] MEDS ORDERED: Magnesium Hydroxide 400 MG/5 ML Susp 30 ML Cup PO PRN (17:59)
[2017-11-04] MEDS ORDERED: Acetaminophen 325 MG Tab PO PRN (17:59)
[2017-11-04] MEDS ORDERED: Bisacodyl 5 MG Tab PO PRN (17:59)
[2017-11-04] MEDS ORDERED: Docusate Sodium 100 MG Cap PO PRN (17:59)
[2017-11-04] MEDS ORDERED: Polyethylene Glycol 3350 Powder 17 GM Packet PO PRN (17:59)
[2017-11-04] MEDS ORDERED: Promethazine 25 MG Tab PO PRN (17:59)
[2017-11-04] MEDS ORDERED: Albuterol/Ipratropium 3.0-0.5 MG/3 ML Neb Soln NEB PRN (17:59)
[2017-11-04] MEDS ORDERED: HYDROmorphone 0.5 MG/0.5 ML SYRINGE IVPUSH ONE (18:24)
--- NOTE | 2017-11-04 18:29 | PCM.HP ---
<Ava Harris - Last Filed: 11/04/17 19:02> H&P History of Present Illness - General Date of Service: 11/04/17 Admit Problem/Dx: Admission Diagnosis/Problem Admission Diagnosis/Problem Intractable back pain Source of Information: Patient, Family, Old Records - History of Present Illness Initial Comments - Free Text/Narative: This is an 86 y/o male with PMHx significant for cardiomyopathy, arrhythmia with AICD and hx of previous cardiac arrest, HLD, chronic back pain, OA, osteoporosis, hypothyroidism, chronic anticoagulation therapy, and impaired vision who comes in intractable low back pain. Patient was previously seen in the ED on 10/24/[address] scans performed at that time and read as old kyphoplasty at L2, moderate to severe but stable old comopression fractures at T4-5, severe compression fracture to T6 with interval change from prior study done 11/30/16. He has seen a specialist in [place], [place] with bone scan done last week according to his daughter. His work-up in the ED included CBC that was remarkable for Hgb 12.0, MCV 108.1, 74.9% neutrophils. CMP remarkable for BUN 49, Cr 1.7, eGFR 38, Calcium 8.3, albumin 2.7. CRP was 2.2. UA negative for UTI. Patient reports that he has been experiencing worsening acute on chronic back pain. Family also reports that patient has become very weak and has had multiple falls at home with last one being yesterday evening. Family present state that patient has multiple medical problems and is unable to take care of himself at this point in time. He denies any incontinence. He does endorse some constipation with taking pain medications. He admits to not taking his diuretic as directed secondary to it being too difficult to get to the bathroom. He is subsequently admitted to Med/Surg with Tele. He is a former smoker. Code status is CPR with DNI. PCP is Dr. Cornell. lower back Pain Score (Numeric/FACES): 9 - Related Data Allergies/Adverse Reactions: Allergies Allergy/AdvReac Type Severity Reaction Status Date / Time No Known Allergies Allergy Verified 11/04/17 12:42 Home Medications: Home Meds Acetaminophen [Tylenol Arthritis Pain] 650 mg PO Q6H PRN 06/07/14 [History] Amiodarone [Cordarone] 200 mg PO DAILY 06/07/14 [History] Carvedilol [Coreg] 12.5 mg PO BID 06/07/14 [History] Furosemide [Lasix] 60 mg PO DAILY 06/07/14 [History] Levothyroxine 200 mcg PO ACBRK 06/07/14 [History] Warfarin [Coumadin] 4 mg PO SUTUTHSA 06/07/14 [History] atorvaSTATin [Lipitor] 10 mg PO BEDTIME 06/07/14 [History] traMADol [Ultram] 50 tab PO BID PRN 03/12/15 [History] Spironolactone [Aldactone] 12.5 mg PO DAILY 11/30/16 [History] Warfarin [Coumadin] 2 mg PO MOWEFR 11/30/16 [History] Acetaminophen/oxyCODONE [Percocet 325-5 MG] 1 each PO Q6H PRN 11/04/17 [History] Morphine [MS Contin] 15 mg PO BID 11/04/17 [History] Past Medical History HEENT History: Reports: Hard of Hearing, Impaired Vision Cardiovascular History: Reports: Arrhythmia, Automatic Implantable Cardioverter Defibrillators, Cardiomyopathy, Heart Failure, High Cholesterol, Pacemaker, Prior Cardiac Arrest Other Cardiovascular History: About 12 years ago Genitourinary History: Reports: Prostate Disorder, Other (See Below) Other Genitourinary History: "large prostate" Musculoskeletal History: Reports: Arthritis, Back Pain, Chronic, Osteoarthritis , Osteoporosis, Other (See Below) Endocrine/Metabolic History: Reports: Hypothyroidism Hematologic History: Reports: Other (See Below) Other Hematologic History: coumadin therapy Oncologic (Cancer) History: Reports: Other (See Below) Other Oncologic History: hx of skin cancer, removed it-no chemo/radiation. - Infectious Disease History Infectious Disease History: Reports: Chicken Pox - Past Surgical History Cardiovascular Surgical History: Reports: AICD, Pacer Endocrine Surgical History: Reports: None Musculoskeletal Surgical History: Reports: Other (See Below) Other Musculoskeletal Surgeries/Procedures:: cement to spinal column lower back Dermatological Surgical History: Reports: Skin Biopsy Social & Family History - Family History Family Medical History: Noncontributory Cardiac: Reports: [place] - Tobacco Use Smoking Status *Q: Former Smoker Used Tobacco, but Quit: Yes Month/Year Tobacco Last Used: 1962 - Caffeine Use Caffeine Use: Reports: Coffee - Recreational Drug Use Recreational Drug Use: No - Living Situation & Occupation Living situation: Reports: Occupation: Retired H&P Review of Systems - Review of Systems: Review Of Systems: See Below General: Reports: Weakness, Fatigue HEENT: Reports: No Symptoms Pulmonary: Reports: No Symptoms. Denies: Shortness of Breath, Wheezing Cardiovascular: Reports: Dyspnea on Exertion (chronic and stable ), Edema ( worsening with not taking diuretics as directed ). Denies: Chest Pain, Palpitations Gastrointestinal: Reports: Constipation. Denies: Abdominal Pain, Diarrhea, Nausea, Vomiting Genitourinary: Reports: Frequency (with diuretic therapy but this has decreased with not taking diuretic as directed ). Denies: Dysuria, Burning Musculoskeletal: Reports: Back Pain (severe with movement, acute on chronic that is worsening ) Skin: Reports: Bruising (on warfarin therapy ) Psychiatric: Reports: No Symptoms Neurological: Reports: No Symptoms, Weakness, Gait Disturbance (secondary to pain ). Denies: Confusion, Dizziness, Numbness, Paresthesia Hematologic/Lymphatic: Reports: Easy Bruising (on warfarin therapy ) Immunologic: Reports: No Symptoms Exam - Exam Exam: See Below - Vital Signs Vital Signs: Last Vital Signs Temp 97.1 F 11/04/17 12:30 Pulse 67 11/04/17 17:47 Resp 14 11/04/17 17:47 BP 139/71 11/04/17 17:47 Pulse Ox 94 L 11/04/17 17:47 Weight: 86.183 kg - Exam Quality Assessment: No: Supplemental Oxygen General: Alert, Oriented, Cooperative, Mild Distress (winces with movement ) HEENT: EOMI, Pupils Equal, Pupils Reactive Neck: Supple, Trachea Midline. No: Lymphadenopathy Lungs: Clear to Auscultation, Normal Respiratory Effort Cardiovascular: Regular Rate, Regular Rhythm, Normal S1, Normal S2 GI/Abdominal Exam: Normal Bowel Sounds, Non-Tender, Distended (mild ), Other ( mild hyperresonance to percussion ) (Male) Exam: Deferred Rectal (Males) Exam: Deferred Back Exam: Decreased Range of Motion, Vertebral Tenderness Extremities: Normal Inspection, Pedal Edema (2+ b/l LE ) Peripheral Pulses: 1+: Posterior Tibial (L), Posterior Tibial (R), Dorsalis Pedis (L), Dorsalis Pedis (R), 2+: Radial (L), Radial (R) Skin: Warm, Dry, Intact, Ecchymosis Neurological: Cranial Nerves Intact, Strength Equal Bilateral Neuro Extensive - Mental Status: Alert, Oriented x3, Normal Mood/Affect, Normal Cognition, Memory Intact Psychiatric: Alert, Normal Affect, Normal Mood - Patient Data Lab Results Last 24 hrs: Laboratory Results - last 24 hr 11/04/17 11/04/17 11/04/17 Range/Units 14:05 14:05 15:05 WBC 6.45 (4.23-9.07) K/mm3 RBC 3.56 L (4.63-6.08) M/mm3 Hgb 12.0 L (13.7-17.5) gm/L Hct 38.5 L (40.1-51.0) % MCV 108.1 H (79.0-92.2) fl MCH 33.7 H (25.7-32.2) pg MCHC 31.2 L (32.2-35.5) g/dl RDW Std Deviation 52.2 H (35.1-43.9) fL Plt Count 271 (163-337) K/mm3 MPV 9.0 L (9.4-12.3) fl Neut % (Auto) 74.9 H (34.0-67.9) % Lymph % (Auto) 12.6 L (21.8-53.1) % [place] % (Auto) 11.3 (5.3-12.2) % Eos % (Auto) 0.5 L (0.8-7.0) Baso % (Auto) 0.2 (0.1-1.2) % Neut # (Auto) 4.84 (1.78-5.38) K/mm3 Lymph # (Auto) 0.81 L (1.32-3.57) K/mm3 [place] # (Auto) 0.73 (0.30-0.82) K/mm3 Eos # (Auto) 0.03 L (0.04-0.54) K/mm3 Baso # (Auto) 0.01 (0.01-0.08) K/mm3 Manual Slide Review Abnormal smear Sodium 141 (136-145) mEq/L Potassium 4.7 (3.5-5.1) mEq/L Chloride 106 (98-107) mEq/L Carbon Dioxide 27 (21-32) mEq/L Anion Gap 12.7 (5-15) BUN 49 H (7-18) mg/dL Creatinine 1.7 H (0.7-1.3) mg/dL Est Cr Clr Drug Dosing 32.80 mL/min Estimated GFR (MDRD) 38 (>60) mL/min BUN/Creatinine Ratio 28.8 H (14-18) Glucose 111 (83-115) mg/dL Calcium 8.3 L (8.5-10.1) mg/dL Magnesium 2.3 (1.8-2.4) mg/dl Total Bilirubin 0.6 (0.2-1.0) mg/dL AST 38 H (15-37) U/L ALT 35 (16-63) U/L Alkaline Phosphatase 85 (46-116) U/L C-Reactive Protein 2.2 H* (<1.0) mg/dL Total Protein 6.2 L (6.4-8.2) g/dl Albumin 2.7 L (3.4-5.0) g/dl Globulin 3.5 gm/dL Albumin/Globulin Ratio 0.8 L (1-2) Urine Color Yellow (Yellow) Urine Appearance Clear (Clear) Urine pH 6.5 (5.0-8.0) Ur Specific [place] 1.020 (1.005-1.030) Urine Protein Negative (Negative) Urine Glucose (UA) Negative (Negative) Urine Ketones Negative (Negative) Urine Occult Blood Negative (Negative) Urine Nitrite Negative (Negative) Urine Bilirubin Negative (Negative) Urine Urobilinogen 4.0 H (0.2-1.0) Ur Leukocyte Esterase Negative (Negative) Urine RBC Not seen (0-5) /hpf Urine WBC 0-5 (0-5) /hpf Ur Epithelial Cells 0-5 (0-5) /hpf Urine Bacteria Not seen (FEW) /hpf Urine Mucus Not seen (FEW) /hpf Result Diagrams: 11/04/17 14:05 11/04/17 14:05 Problem List Initiated/Reviewed/Updated: Yes Orders Last 24hrs: Active Orders 24 hr Category Date Time Status Admission Status [Patient Status] [ADT] Routine ADT 11/04/17 15:59 Active Bedrest Bedside Commode [RC] ASDIRECTED Care 11/04/17 17:59 Ordered Cardiac Monitoring [RC] INTERMITTENT Care 11/04/17 18:00 Ordered Height and Weight [RC] DAILY Care 11/04/17 17:59 Ordered Intake and Output [RC] QSHIFT Care 11/04/17 18:00 Ordered May Shower [RC] ASDIRECTED Care 11/04/17 17:59 Ordered Oxygen Therapy [RC] PRN Care 11/04/17 18:00 Ordered Pulse Oximetry [RC] PRN Care 11/04/17 18:00 Ordered RT Aerosol Therapy [RC] ASDIRECTED Care 11/04/17 18:04 Ordered VTE/DVT Education [RC] PER UNIT ROUTINE Care 11/04/17 18:00 Ordered Vital Signs [RC] Q4H Care 11/04/17 18:00 Ordered Consult to Case Management [CONS] Routine Cons 11/04/17 17:59 Ordered Consult to Zoo Director [CONS] Routine Cons 11/04/17 17:59 Ordered Consult to Spiritual Care [CONS] Routine Cons 11/04/17 17:59 Ordered OT Evaluation and Treatment [CONS] Routine Cons 11/04/17 17:59 Ordered PT Evaluation and Treatment [CONS] Routine Cons 11/04/17 17:59 Ordered Heart Healthy Diet [DIET] Diet 11/04/17 Dinner Active BASIC METABOLIC PANEL,BMP [CHEM] AM Lab 11/05/17 05:11 Ordered BASIC METABOLIC PANEL,BMP [CHEM] AM Lab 11/06/17 05:11 Ordered BASIC METABOLIC PANEL,BMP [CHEM] AM Lab 11/07/17 05:11 Ordered BASIC METABOLIC PANEL,BMP [CHEM] AM Lab 11/08/17 05:11 Ordered BASIC METABOLIC PANEL,BMP [CHEM] AM Lab 11/09/17 05:11 Ordered BASIC METABOLIC PANEL,BMP [CHEM] AM Lab 11/10/17 05:11 Ordered BASIC METABOLIC PANEL,BMP [CHEM] AM Lab 11/11/17 05:11 Ordered CBC WITH AUTO DIFF [HEME] AM Lab 11/05/17 05:11 Ordered CBC WITH AUTO DIFF [HEME] AM Lab 11/06/17 05:11 Ordered CBC WITH AUTO DIFF [HEME] AM Lab 11/07/17 05:11 Ordered CBC WITH AUTO DIFF [HEME] AM Lab 11/08/17 05:11 Ordered CBC WITH AUTO DIFF [HEME] AM Lab 11/09/17 05:11 Ordered CBC WITH AUTO DIFF [HEME] AM Lab 11/10/17 05:11 Ordered CBC WITH AUTO DIFF [HEME] AM Lab 11/11/17 05:11 Ordered UA W/MICROSCOPIC [URIN] Stat Lab 11/04/17 15:05 Ordered Acetaminophen [Tylenol] Med 11/04/17 17:59 Ordered 650 mg PO Q4H PRN Albuterol/Ipratropium [DuoNeb 3.0-0.5 MG/3 ML] Med 11/04/17 17:59 Ordered 3 ml NEB Q4H PRN Amiodarone [Cordarone] Med 11/05/17 09:00 Ordered 200 mg PO DAILY Bisacodyl [Dulcolax] Med 11/04/17 17:59 Ordered 5 mg PO DAILY PRN Carvedilol Med 11/04/17 21:00 Ordered 12.5 mg PO BID Docusate Sodium [Colace] Med 11/04/17 17:59 Ordered 100 mg PO BID PRN Docusate Sodium/Sennosides [Senna Plus] Med 11/04/17 17:59 Ordered 1 tab PO BID PRN Furosemide [Lasix] Med 11/05/17 09:00 Ordered 60 mg PO DAILY Levothyroxine Med 11/05/17 06:00 Ordered 200 mcg PO ACBRK Magnesium Hydroxide [Milk of Magnesia] Med 11/04/17 17:59 Ordered 30 ml PO Q12H PRN Morphine Med 11/04/17 16:00 Active 2 mg IVPUSH Q2H PRN Polyethylene Glycol 3350 [MiraLAX] Med 11/04/17 17:59 Ordered 17 gm PO DAILY PRN Promethazine [Phenergan] Med 11/04/17 17:59 Ordered 25 mg PO Q6H PRN Promethazine [Phenergan] 6.25 mg Med 11/04/17 17:59 Ordered Sodium Chloride 0.9% [Normal Saline] 50 ml IV Q6H Sodium Chloride 0.9% [Normal Saline] 1,000 ml Med 11/04/17 13:30 Active IV ASDIRECTED Spironolactone [Aldactone] Med 11/05/17 09:00 Ordered 12.5 mg PO DAILY Temazepam [Restoril] Med 11/04/17 17:59 Ordered 7.5 mg PO BEDTIME PRN Warfarin [Coumadin] Med 11/04/17 18:15 Ordered 2 mg PO MOWEFR Warfarin [Coumadin] Med 11/05/17 18:07 Ordered 4 mg PO SUTUTHSA atorvaSTATin Med 11/04/17 21:00 Ordered 10 mg PO BEDTIME oxyCODONE Med 11/04/17 17:59 Ordered 5 mg PO Q4H PRN traMADol [Ultram] Med 11/04/17 18:07 Ordered 50 tab PO BID PRN Resuscitation Status Routine Resus Stat 11/04/17 17:48 Ordered Medication Orders Acetaminophen (Tylenol) 650 mg PO Q4H PRN PRN Reason: Pain (Mild 1-3)/fever Albuterol/Ipratropium (Duoneb 3.0-0.5 Mg/3 Ml) 3 ml NEB Q4H PRN PRN Reason: Shortness Of Breath/wheezing Amiodarone HCl (Cordarone) 200 mg PO DAILY KINJAL Bisacodyl (Dulcolax) 5 mg PO DAILY PRN PRN Reason: Constipation Docusate Sodium (Colace) 100 mg PO BID PRN PRN Reason: Constipation Furosemide (Lasix) 60 mg PO DAILY [facility] Sodium Chloride (Normal Saline) 1,000 mls @ 100 mls/hr IV ASDIRECTED KINJAL Last Admin: 11/04/17 14:09 Dose: 100 mls/hr Promethazine HCl 6.25 mg/ (Sodium Chloride) 50.25 mls @ 100 mls/hr IV Q6H PRN PRN Reason: Nausea/Vomiting Levothyroxine Sodium (Levothyroxine) 200 mcg PO ACBRK [facility] Magnesium Hydroxide (Milk Of Magnesia) 30 ml PO Q12H PRN PRN Reason: Constipation Morphine Sulfate (Morphine) 2 mg IVPUSH Q2H PRN PRN Reason: Pain Last Admin: 11/04/17 16:09 Dose: 2 mg Non-Formulary Medication (Atorvastatin) 10 mg PO BEDTIME [facility] Non-Formulary Medication (Carvedilol) 12.5 mg PO BID [facility] Oxycodone HCl (Oxycodone) 5 mg PO Q4H PRN PRN Reason: Pain (moderate 4-6) Polyethylene Glycol (Miralax) 17 gm PO DAILY PRN PRN Reason: Constipation Promethazine HCl (Phenergan) 25 mg PO Q6H PRN PRN Reason: Nausea/Vomiting Senna/Docusate Sodium (Senna Plus) 1 tab PO BID PRN PRN Reason: Constipation Spironolactone (Aldactone) 12.5 mg PO DAILY [facility] Temazepam (Restoril) 7.5 mg PO BEDTIME PRN PRN Reason: Sleep Tramadol HCl (Ultram) mg PO BID PRN PRN Reason: Pain Warfarin Sodium (Coumadin) 2 mg PO MOWEFR KINJAL Warfarin Sodium (Coumadin) 4 mg PO SUTUTHSA [facility] Assessment/Plan Comment:: Acute: Low back pain with intractable pain * CT scans performed at ED visit on 10/24/17 read as old kyphoplasty at L2, moderate to severe but stable old compression fractures at T4-5, severe compression fracture to T6 with interval change from prior study done 11/30/16 * He has seen a specialist in [place] with bone scan done last week according to his daughter * Daughter also reports that he has seen interventional radiology and there is no intervention that can be performed * He has been on morphine, tramadol, and percocet with minimal relief * Pain management as follows: * Fentanyl 12 mcg transdermal patch q 72 hr * Lidocaine patch q 24 hr * Morphine 2 mg IV q 2 hr prn severe pain * oxycodone 5 mg po q 4 hr prn moderate pain * Tramadol 50 mg po BID prn pain * Heat therapy * Consult PT/OT Renal insufficiency * Cr 1.7, eGFR 38 in ED * Appears to be close to baseline per records --> Acute on chronic kidney disease * Monitor Cardiomyopathy and hx of arrhythmia with AICD, stable * Patient reports he has not had any shocks in a long time * Continue home meds which includes coumadin --> will order PT/INR * Continuous telemetry * Heart healthy diet Chronic: Cardiomyopathy Arrhythmia with AICD and hx of previous cardiac arrest HLD Chronic back pain OA Osteoporosis Hypothyroidism, chronic anticoagulation therapy, and impaired vision Plan: Admitted from ED to Med/Surg with Tele Pain management Other orders as indicated above CM/SW for discharge planning --> patient is open to rehab stay and would prefer [facility] Routine AM labs Continue home meds Heart Healthy diet DVT Prophylaxis: Warfarin (patient is on this at home) Code Status: CPR with DNI PCP: Dr. Kiel Cornell <Masood Huerta T - Last Filed: 11/04/17 19:52> H&P History of Present Illness - General Admit Problem/Dx: Admission Diagnosis/Problem Admission Diagnosis/Problem Intractable back pain Exam - Vital Signs Vital Signs: Last Vital Signs Temp 36.2 C 11/04/17 12:30 Pulse 67 11/04/17 17:47 Resp 14 11/04/17 17:47 BP 139/71 11/04/17 17:47 Pulse Ox 94 L 11/04/17 17:47 - Patient Data Lab Results Last 24 hrs: Laboratory Results - last 24 hr 11/04/17 11/04/17 11/04/17 Range/Units 14:05 14:05 15:05 WBC 6.45 (4.23-9.07) K/mm3 RBC 3.56 L (4.63-6.08) M/mm3 Hgb 12.0 L (13.7-17.5) gm/L Hct 38.5 L (40.1-51.0) % MCV 108.1 H (79.0-92.2) fl MCH 33.7 H (25.7-32.2) pg MCHC 31.2 L (32.2-35.5) g/dl RDW Std Deviation 52.2 H (35.1-43.9) fL Plt Count 271 (163-337) K/mm3 MPV 9.0 L (9.4-12.3) fl Neut % (Auto) 74.9 H (34.0-67.9) % Lymph % (Auto) 12.6 L (21.8-53.1) % [place] % (Auto) 11.3 (5.3-12.2) % Eos % (Auto) 0.5 L (0.8-7.0) Baso % (Auto) 0.2 (0.1-1.2) % Neut # (Auto) 4.84 (1.78-5.38) K/mm3 Lymph # (Auto) 0.81 L (1.32-3.57) K/mm3 [place] # (Auto) 0.73 (0.30-0.82) K/mm3 Eos # (Auto) 0.03 L (0.04-0.54) K/mm3 Baso # (Auto) 0.01 (0.01-0.08) K/mm3 Manual Slide Review Abnormal smear Sodium 141 (136-145) mEq/L Potassium 4.7 (3.5-5.1) mEq/L Chloride 106 (98-107) mEq/L Carbon Dioxide 27 (21-32) mEq/L Anion Gap 12.7 (5-15) BUN 49 H (7-18) mg/dL Creatinine 1.7 H (0.7-1.3) mg/dL Est Cr Clr Drug Dosing 32.80 mL/min Estimated GFR (MDRD) 38 (>60) mL/min BUN/Creatinine Ratio 28.8 H (14-18) Glucose 111 (83-115) mg/dL Calcium 8.3 L (8.5-10.1) mg/dL Magnesium 2.3 (1.8-2.4) mg/dl Total Bilirubin 0.6 (0.2-1.0) mg/dL AST 38 H (15-37) U/L ALT 35 (16-63) U/L Alkaline Phosphatase 85 (46-116) U/L C-Reactive Protein 2.2 H* (<1.0) mg/dL Total Protein 6.2 L (6.4-8.2) g/dl Albumin 2.7 L (3.4-5.0) g/dl Globulin 3.5 gm/dL Albumin/Globulin Ratio 0.8 L (1-2) Urine Color Yellow (Yellow) Urine Appearance Clear (Clear) Urine pH 6.5 (5.0-8.0) Ur Specific [place] 1.020 (1.005-1.030) Urine Protein Negative (Negative) Urine Glucose (UA) Negative (Negative) Urine Ketones Negative (Negative) Urine Occult Blood Negative (Negative) Urine Nitrite Negative (Negative) Urine Bilirubin Negative (Negative) Urine Urobilinogen 4.0 H (0.2-1.0) Ur Leukocyte Esterase Negative (Negative) Urine RBC Not seen (0-5) /hpf Urine WBC 0-5 (0-5) /hpf Ur Epithelial Cells 0-5 (0-5) /hpf Urine Bacteria Not seen (FEW) /hpf Urine Mucus Not seen (FEW) /hpf Result Diagrams: 11/04/17 14:05 11/04/17 14:05 Orders Last 24hrs: Active Orders 24 hr Category Date Time Status Admission Status [Patient Status] [ADT] Routine ADT 11/04/17 15:59 Active Bedrest Bedside Commode [RC] ASDIRECTED Care 11/04/17 17:59 Active Cardiac Monitoring [RC] CONTINUOUS Care 11/04/17 18:28 Active Cardiac Monitoring [RC] INTERMITTENT Care 11/04/17 18:00 Inactive Cooling Warming Measures [RC] ASDIRECTED Care 11/04/17 19:00 Active Height and Weight [RC] DAILY Care 11/04/17 17:59 Active Intake and Output [RC] QSHIFT Care 11/04/17 18:00 Active May Shower [RC] ASDIRECTED Care 11/04/17 17:59 Active Oxygen Therapy [RC] PRN Care 11/04/17 18:00 Active Pulse Oximetry [RC] PRN Care 11/04/17 18:00 Active RT Aerosol Therapy [RC] ASDIRECTED Care 11/04/17 18:04 Active VTE/DVT Education [RC] PER UNIT ROUTINE Care 11/04/17 18:00 Active Vital Signs [RC] Q4H Care 11/04/17 18:00 Active Consult to Case Management [CONS] Routine Cons 11/04/17 17:59 Active Consult to Zoo Director [CONS] Routine Cons 11/04/17 17:59 Active Consult to Spiritual Care [CONS] Routine Cons 11/04/17 17:59 Active OT Evaluation and Treatment [CONS] Routine Cons 11/04/17 17:59 Active PT Evaluation and Treatment [CONS] Routine Cons 11/04/17 17:59 Active Heart Healthy Diet [DIET] Diet 11/04/17 Dinner Active BASIC METABOLIC PANEL,BMP [CHEM] AM Lab 11/05/17 05:11 Ordered BASIC METABOLIC PANEL,BMP [CHEM] AM Lab 11/06/17 05:11 Ordered BASIC METABOLIC PANEL,BMP [CHEM] AM Lab 11/07/17 05:11 Ordered BASIC METABOLIC PANEL,BMP [CHEM] AM Lab 11/08/17 05:11 Ordered BASIC METABOLIC PANEL,BMP [CHEM] AM Lab 11/09/17 05:11 Ordered BASIC METABOLIC PANEL,BMP [CHEM] AM Lab 11/10/17 05:11 Ordered BASIC METABOLIC PANEL,BMP [CHEM] AM Lab 11/11/17 05:11 Ordered CBC WITH AUTO DIFF [HEME] AM Lab 11/05/17 05:11 Ordered CBC WITH AUTO DIFF [HEME] AM Lab 11/06/17 05:11 Ordered CBC WITH AUTO DIFF [HEME] AM Lab 11/07/17 05:11 Ordered CBC WITH AUTO DIFF [HEME] AM Lab 11/08/17 05:11 Ordered CBC WITH AUTO DIFF [HEME] AM Lab 11/09/17 05:11 Ordered CBC WITH AUTO DIFF [HEME] AM Lab 11/10/17 05:11 Ordered CBC WITH AUTO DIFF [HEME] AM Lab 11/11/17 05:11 Ordered INR,PT,PROTHROMBIN TIME [COAG] Routine Lab 11/04/17 18:48 Received UA W/MICROSCOPIC [URIN] Stat Lab 11/04/17 15:05 Ordered Acetaminophen [Tylenol] Med 11/04/17 17:59 Active 650 mg PO Q4H PRN Albuterol/Ipratropium [DuoNeb 3.0-0.5 MG/3 ML] Med 11/04/17 17:59 Active 3 ml NEB Q4H PRN Amiodarone [Cordarone] Med 11/05/17 09:00 Active 200 mg PO DAILY Bisacodyl [Dulcolax] Med 11/04/17 17:59 Active 5 mg PO DAILY PRN Carvedilol [Coreg] Med 11/04/17 21:00 Active 12.5 mg PO BID Docusate Sodium [Colace] Med 11/04/17 17:59 Active 100 mg PO BID PRN Docusate Sodium/Sennosides [Senna Plus] Med 11/04/17 17:59 Active 1 tab PO BID PRN Furosemide [Lasix] Med 11/05/17 09:00 Active 60 mg PO DAILY Levothyroxine [Synthroid] Med 11/05/17 06:00 Active 200 mcg PO ACBRK Lidocaine 5% [Lidoderm 5%] Med 11/04/17 19:00 Pending 700 mg TOP Q24H Magnesium Hydroxide [Milk of Magnesia] Med 11/04/17 17:59 Active 30 ml PO Q12H PRN Morphine Med 11/04/17 16:00 Active 2 mg IVPUSH Q2H PRN Polyethylene Glycol 3350 [MiraLAX] Med 11/04/17 17:59 Active 17 gm PO DAILY PRN Promethazine [Phenergan] Med 11/04/17 17:59 Active 25 mg PO Q6H PRN Promethazine [Phenergan] 6.25 mg Med 11/04/17 17:59 Active Sodium Chloride 0.9% [Normal Saline] 50 ml IV Q6H Remove Patch Med 11/07/17 19:00 Active 1 ea TRDERM Q72H Sodium Chloride 0.9% [Normal Saline] 1,000 ml Med 11/04/17 13:30 Active IV ASDIRECTED Spironolactone [Aldactone] Med 11/05/17 09:00 Active 12.5 mg PO DAILY Temazepam [Restoril] Med 11/04/17 17:59 Active 7.5 mg PO BEDTIME PRN Warfarin [Coumadin] Med 11/04/17 18:15 Pending 2 mg PO MOWEFR Warfarin [Coumadin] Med 11/05/17 18:07 Pending 4 mg PO SUTUTHSA atorvaSTATin Med 11/04/17 21:00 Pending 10 mg PO BEDTIME fentaNYL [Duragesic] Med 11/04/17 19:00 Active 12 mcg TRDERM Q72H oxyCODONE Med 11/04/17 17:59 Active 5 mg PO Q4H PRN traMADol [Ultram] Med 11/04/17 18:07 Active 50 mg PO BID PRN Heat Therapy [OM.PC] Routine Oth 11/04/17 19:00 Ordered Resuscitation Status Routine Resus Stat 11/04/17 17:48 Ordered Medication Orders Acetaminophen (Tylenol) 650 mg PO Q4H PRN PRN Reason: Pain (Mild 1-3)/fever Albuterol/Ipratropium (Duoneb 3.0-0.5 Mg/3 Ml) 3 ml NEB Q4H PRN PRN Reason: Shortness Of Breath/wheezing Amiodarone HCl (Cordarone) 200 mg PO DAILY [facility] Bisacodyl (Dulcolax) 5 mg PO DAILY PRN PRN Reason: Constipation Carvedilol (Coreg) 12.5 mg PO BID [facility] Docusate Sodium (Colace) 100 mg PO BID PRN PRN Reason: Constipation Fentanyl (Duragesic) 12 mcg TRDERM Q72H [facility] Furosemide (Lasix) 60 mg PO DAILY [facility] Sodium Chloride (Normal Saline) 1,000 mls @ 100 mls/hr IV ASDIRECTED [facility] Last Admin: 11/04/17 14:09 Dose: 100 mls/hr Promethazine HCl 6.25 mg/ (Sodium Chloride) 50.25 mls @ 100 mls/hr IV Q6H PRN PRN Reason: Nausea/Vomiting Levothyroxine Sodium (Synthroid) 200 mcg PO ACBRK [facility] Lidocaine (Lidoderm 5%) 700 mg TOP Q24H [facility] Magnesium Hydroxide (Milk Of Magnesia) 30 ml PO Q12H PRN PRN Reason: Constipation Miscellaneous Information (Remove Patch) 1 ea TRDERM Q72H [facility] Morphine Sulfate (Morphine) 2 mg IVPUSH Q2H PRN PRN Reason: Pain Last Admin: 11/04/17 16:09 Dose: 2 mg Non-Formulary Medication (Atorvastatin) 10 mg PO BEDTIME [facility] Oxycodone HCl (Oxycodone) 5 mg PO Q4H PRN PRN Reason: Pain (moderate 4-6) Polyethylene Glycol (Miralax) 17 gm PO DAILY PRN PRN Reason: Constipation Promethazine HCl (Phenergan) 25 mg PO Q6H PRN PRN Reason: Nausea/Vomiting Senna/Docusate Sodium (Senna Plus) 1 tab PO BID PRN PRN Reason: Constipation Spironolactone (Aldactone) 12.5 mg PO DAILY [facility] Temazepam (Restoril) 7.5 mg PO BEDTIME PRN PRN Reason: Sleep Tramadol HCl (Ultram) 50 mg PO BID PRN PRN Reason: Pain Warfarin Sodium (Coumadin) 2 mg PO MOWEFR [facility] Warfarin Sodium (Coumadin) 4 mg PO SUTUTHSA [facility] Assessment/Plan Comment:: The patient was seen and examined at bedside in concert with the PA student. The admission assessment and plans were discussed and agreed upon with me. Patient is here primarily for intractable pain. He has seen just about every specialist for it and at this point nothing seems to work for his back pain. Patient was uncomfortable and in extreme pain during my examination w/ a pain scale of 30. Spoke to his family members at bedside and offered a low dose Fentanyl patch and a one time dose of 0.5 dilaudid IVP. After I discussed risks and benefits with them, they agreed. We will monitor patient for over sedation and respiratory depression.
[2017-11-04] MEDS ORDERED: fentaNYL 12 MCG/HR Transdermal Patch TRDERM SCH (19:00)
[2017-11-04] MEDS: Carvedilol 12.5 MG Tab PO SCH (20:48)
[2017-11-04] MEDS: traMADol 50 MG Tab PO PRN (20:49)
[2017-11-04] MEDS: Lidocaine 5% 700 MG Patch TOP SCH (20:50)
[2017-11-04] MEDS: Temazepam 7.5 MG Cap PO PRN (23:29)
[2017-11-05] MEDS: Sodium Chloride 0.9% 1,000 ML IV SCH (01:45)
[2017-11-05] MEDS: oxyCODONE 5 MG Tab PO PRN ×5 (02:04→21:24)
[2017-11-05] MEDS: Morphine 2 MG/ML Syringe IVPUSH PRN (02:11)
[2017-11-05] MEDS: Levothyroxine 100 MCG Tab PO SCH (06:23)
[2017-11-05] MEDS: Spironolactone 25 MG Tab PO SCH (08:27)
[2017-11-05] MEDS: Carvedilol 12.5 MG Tab PO SCH ×2 (08:28→21:22)
[2017-11-05] MEDS: Furosemide 40 MG Tab PO SCH (08:28)
[2017-11-05] MEDS: Amiodarone 200 MG Tab PO SCH (08:29)
[2017-11-05] MEDS: traMADol 50 MG Tab PO PRN (08:35)
--- NOTE | 2017-11-05 09:34 | PCM.PN ---
<Ava Harris - Last Filed: 11/05/17 10:03> - General Info Date of Service: 11/05/17 Admission Dx/Problem (Free Text): Admission Diagnosis/Problem Admission Diagnosis/Problem Intractable back pain Subjective Update: In to see Christian. He is resting comfortably in bed. He appears to be in less pain than he was yesterday, and states that the pain meds that were initiated ( Fentanyl and lidocaine patch) seem to have helped his pain. Patient denies chest pain, GI/ issues. He does endorse chronic LOPEZ, but this is unchanged. Nursing reports that patient slept well overnight. Functional Status: Reports: Pain Controlled (improved with pain management ), Tolerating Diet, Ambulating (with assistance ), Urinating - Review of Systems General: Reports: Weakness (stable ). Denies: Fever, Chills HEENT: Reports: No Symptoms Pulmonary: Reports: No Symptoms. Denies: Shortness of Breath, Cough Cardiovascular: Reports: Dyspnea on Exertion (chronic ), Edema (chronic ). Denies: Chest Pain, Palpitations Gastrointestinal: Reports: Constipation. Denies: Abdominal Pain, Diarrhea, Nausea, Vomiting Genitourinary: Reports: No Symptoms. Denies: Dysuria, Frequency, Burning Musculoskeletal: Reports: Back Pain Skin: Reports: No Symptoms Neurological: Reports: No Symptoms. Denies: Confusion, Dizziness, Headache, Paresthesia Psychiatric: Reports: No Symptoms - Patient Data Vitals - Most Recent: Last Vital Signs Temp 97.3 F 11/05/17 07:14 Pulse 62 11/05/17 08:28 Resp 18 11/05/17 07:14 BP 119/94 H 11/05/17 08:28 Pulse Ox 96 11/05/17 07:14 Weight - Most Recent: 86.137 kg I&O - Last 24 Hours: Intake & Output 11/04/17 11/05/17 11/05/17 22:59 06:59 14:59 Intake Total 180 1395 Output Total 750 Balance 180 645 Lab Results Last 24 Hours: Laboratory Results - last 24 hr 11/04/17 11/04/17 11/04/17 Range/Units 14:05 14:05 14:05 WBC 6.45 (4.23-9.07) K/mm3 RBC 3.56 L (4.63-6.08) M/mm3 Hgb 12.0 L (13.7-17.5) gm/L Hct 38.5 L (40.1-51.0) % MCV 108.1 H (79.0-92.2) fl MCH 33.7 H (25.7-32.2) pg MCHC 31.2 L (32.2-35.5) g/dl RDW Std Deviation 52.2 H (35.1-43.9) fL Plt Count 271 (163-337) K/mm3 MPV 9.0 L (9.4-12.3) fl Neut % (Auto) 74.9 H (34.0-67.9) % Lymph % (Auto) 12.6 L (21.8-53.1) % [place] % (Auto) 11.3 (5.3-12.2) % Eos % (Auto) 0.5 L (0.8-7.0) Baso % (Auto) 0.2 (0.1-1.2) % Neut # (Auto) 4.84 (1.78-5.38) K/mm3 Lymph # (Auto) 0.81 L (1.32-3.57) K/mm3 [place] # (Auto) 0.73 (0.30-0.82) K/mm3 Eos # (Auto) 0.03 L (0.04-0.54) K/mm3 Baso # (Auto) 0.01 (0.01-0.08) K/mm3 Manual Slide Review Abnormal smear PT 25.3 H (9.5-12.1) SECONDS INR 2.36 Sodium 141 (136-145) mEq/L Potassium 4.7 (3.5-5.1) mEq/L Chloride 106 (98-107) mEq/L Carbon Dioxide 27 (21-32) mEq/L Anion Gap 12.7 (5-15) BUN 49 H (7-18) mg/dL Creatinine 1.7 H (0.7-1.3) mg/dL Est Cr Clr Drug Dosing 32.80 mL/min Estimated GFR (MDRD) 38 (>60) mL/min BUN/Creatinine Ratio 28.8 H (14-18) Glucose 111 (83-115) mg/dL Calcium 8.3 L (8.5-10.1) mg/dL Magnesium 2.3 (1.8-2.4) mg/dl Total Bilirubin 0.6 (0.2-1.0) mg/dL AST 38 H (15-37) U/L ALT 35 (16-63) U/L Alkaline Phosphatase 85 (46-116) U/L C-Reactive Protein 2.2 H* (<1.0) mg/dL Total Protein 6.2 L (6.4-8.2) g/dl Albumin 2.7 L (3.4-5.0) g/dl Globulin 3.5 gm/dL Albumin/Globulin Ratio 0.8 L (1-2) Urine Color (Yellow) Urine Appearance (Clear) Urine pH (5.0-8.0) Ur Specific [place] (1.005-1.030) Urine Protein (Negative) Urine Glucose (UA) (Negative) Urine Ketones (Negative) Urine Occult Blood (Negative) Urine Nitrite (Negative) Urine Bilirubin (Negative) Urine Urobilinogen (0.2-1.0) Ur Leukocyte Esterase (Negative) Urine RBC (0-5) /hpf Urine WBC (0-5) /hpf Ur Epithelial Cells (0-5) /hpf Urine Bacteria (FEW) /hpf Urine Mucus (FEW) /hpf 11/04/17 11/05/17 11/05/17 Range/Units 15:05 06:15 06:15 WBC 6.31 (4.23-9.07) K/mm3 RBC 3.53 L (4.63-6.08) M/mm3 Hgb 12.2 L (13.7-17.5) gm/L Hct 38.1 L (40.1-51.0) % MCV 107.9 H (79.0-92.2) fl MCH 34.6 H (25.7-32.2) pg MCHC 32.0 L (32.2-35.5) g/dl RDW Std Deviation 51.8 H (35.1-43.9) fL Plt Count 249 (163-337) K/mm3 MPV 9.0 L (9.4-12.3) fl Neut % (Auto) 73.8 H (34.0-67.9) % Lymph % (Auto) 14.7 L (21.8-53.1) % [place] % (Auto) 10.6 (5.3-12.2) % Eos % (Auto) 0.5 L (0.8-7.0) Baso % (Auto) 0.2 (0.1-1.2) % Neut # (Auto) 4.66 (1.78-5.38) K/mm3 Lymph # (Auto) 0.93 L (1.32-3.57) K/mm3 [place] # (Auto) 0.67 (0.30-0.82) K/mm3 Eos # (Auto) 0.03 L (0.04-0.54) K/mm3 Baso # (Auto) 0.01 (0.01-0.08) K/mm3 Manual Slide Review Abnormal smear PT (9.5-12.1) SECONDS INR Sodium 141 (136-145) mEq/L Potassium 4.5 (3.5-5.1) mEq/L Chloride 107 (98-107) mEq/L Carbon Dioxide 25 (21-32) mEq/L Anion Gap 13.5 (5-15) BUN 40 H (7-18) mg/dL Creatinine 1.2 (0.7-1.3) mg/dL Est Cr Clr Drug Dosing 46.47 mL/min Estimated GFR (MDRD) 58 (>60) mL/min BUN/Creatinine Ratio 33.3 H (14-18) Glucose 100 (83-115) mg/dL Calcium 8.3 L (8.5-10.1) mg/dL Magnesium (1.8-2.4) mg/dl Total Bilirubin (0.2-1.0) mg/dL AST (15-37) U/L ALT (16-63) U/L Alkaline Phosphatase (46-116) U/L C-Reactive Protein (<1.0) mg/dL Total Protein (6.4-8.2) g/dl Albumin (3.4-5.0) g/dl Globulin gm/dL Albumin/Globulin Ratio (1-2) Urine Color Yellow (Yellow) Urine Appearance Clear (Clear) Urine pH 6.5 (5.0-8.0) Ur Specific [place] 1.020 (1.005-1.030) Urine Protein Negative (Negative) Urine Glucose (UA) Negative (Negative) Urine Ketones Negative (Negative) Urine Occult Blood Negative (Negative) Urine Nitrite Negative (Negative) Urine Bilirubin Negative (Negative) Urine Urobilinogen 4.0 H (0.2-1.0) Ur Leukocyte Esterase Negative (Negative) Urine RBC Not seen (0-5) /hpf Urine WBC 0-5 (0-5) /hpf Ur Epithelial Cells 0-5 (0-5) /hpf Urine Bacteria Not seen (FEW) /hpf Urine Mucus Not seen (FEW) /hpf Med Orders - Current: Current Medications Acetaminophen (Tylenol) 650 mg PO Q4H PRN PRN Reason: Pain (Mild 1-3)/fever Albuterol/Ipratropium (Duoneb 3.0-0.5 Mg/3 Ml) 3 ml NEB Q4H PRN PRN Reason: Shortness Of Breath/wheezing Amiodarone HCl (Cordarone) 200 mg PO DAILY [facility] Last Admin: 11/05/17 08:29 Dose: 200 mg Bisacodyl (Dulcolax) 5 mg PO DAILY PRN PRN Reason: Constipation Last Admin: 11/05/17 06:24 Dose: 5 mg Carvedilol (Coreg) 12.5 mg PO BID [facility] Last Admin: 11/05/17 08:28 Dose: 12.5 mg Docusate Sodium (Colace) 100 mg PO BID PRN PRN Reason: Constipation Last Admin: 11/04/17 20:49 Dose: 100 mg Fentanyl (Duragesic) 12 mcg TRDERM Q72H [facility] Last Admin: 11/04/17 19:53 Dose: 12 mcg Furosemide (Lasix) 60 mg PO DAILY [facility] Last Admin: 11/05/17 08:28 Dose: 60 mg Sodium Chloride (Normal Saline) 1,000 mls @ 100 mls/hr IV ASDIRECTED [facility] Last Admin: 11/05/17 01:45 Dose: 100 mls/hr Promethazine HCl 6.25 mg/ (Sodium Chloride) 50.25 mls @ 100 mls/hr IV Q6H PRN PRN Reason: Nausea/Vomiting Levothyroxine Sodium (Synthroid) 200 mcg PO ACBRK [facility] Last Admin: 11/05/17 06:23 Dose: 200 mcg Lidocaine (Lidoderm 5%) 700 mg TOP Q24H [facility] Last Admin: 11/04/17 20:50 Dose: 700 mg Magnesium Hydroxide (Milk Of Magnesia) 30 ml PO Q12H PRN PRN Reason: Constipation Last Admin: 11/05/17 08:27 Dose: 30 ml Miscellaneous Information (Remove Patch) 1 ea TRDERM Q72H [facility] Miscellaneous Information (Remove Patch) 0 ea TRDERM DAILY@0700 [facility] Last Admin: 11/05/17 08:29 Dose: 1 ea Morphine Sulfate (Morphine) 2 mg IVPUSH Q2H PRN PRN Reason: Pain Last Admin: 11/05/17 02:11 Dose: 2 mg Non-Formulary Medication (Atorvastatin) 10 mg PO BEDTIME [facility] Oxycodone HCl (Oxycodone) 5 mg PO Q4H PRN PRN Reason: Pain (moderate 4-6) Last Admin: 11/05/17 06:23 Dose: 5 mg Polyethylene Glycol (Miralax) 17 gm PO DAILY PRN PRN Reason: Constipation Promethazine HCl (Phenergan) 25 mg PO Q6H PRN PRN Reason: Nausea/Vomiting Senna/Docusate Sodium (Senna Plus) 1 tab PO BID PRN PRN Reason: Constipation Spironolactone (Aldactone) 12.5 mg PO DAILY [facility] Last Admin: 11/05/17 08:27 Dose: 12.5 mg Temazepam (Restoril) 7.5 mg PO BEDTIME PRN PRN Reason: Sleep Last Admin: 11/04/17 23:29 Dose: 7.5 mg Tramadol HCl (Ultram) 50 mg PO BID PRN PRN Reason: Pain Last Admin: 11/05/17 08:35 Dose: 50 mg Warfarin S[facility]) [facility] ([facility]) [facility] Discontinued Medications Hydromorphone HCl (Dilaudid) 0.5 mg IVPUSH ONETIME ONE Stop: 11/04/17 18:25 Last Admin: 11/04/17 18:44 Dose: 0.5 mg Morphine Sulfate (Morphine) 2 mg IVPUSH ONETIME ONE Stop: 11/04/17 13:24 Last Admin: 11/04/17 14:09 Dose: 2 mg - Exam Quality Assessment: DVT Prophylaxis (MANAV hobson present ). No: Supplemental Oxygen General: Alert, Oriented, Cooperative, No Acute Distress HEENT: Pupils Equal, Pupils Reactive, EOMI, Mucous Membr. Moist/Ada Neck: Supple, Trachea Midline. No: Lymphadenopathy Lungs: Clear to Auscultation, Normal Respiratory Effort Cardiovascular: Regular Rate, Regular Rhythm, No Murmurs GI/Abdominal Exam: Normal Bowel Sounds, Soft, Non-Tender, Distended (mild ), Other (mild hyperresonance ). No: Guarding, Rebound (Male) Exam: Deferred Back Exam: Normal Inspection, Decreased Range of Motion Extremities: Normal Inspection, Non-Tender, Pedal Edema (1+ b/l LE ), Limited Range of Motion Peripheral Pulses: 1+: Radial (L), Radial (R), Posterior Tibial (L), Posterior Tibial (R), Dorsalis Pedis (L), Dorsalis Pedis (R) Skin: Warm, Dry, Intact, Ecchymosis Neurological: No New Focal Deficit, Strength Equal Bilateral, Cranial Nerves Intact (grossly ) Psy/Mental Status: Alert, Normal Affect, Normal Mood - Problem List Review Problem List Initiated/Reviewed/Updated: Yes - My Orders Last 24 Hours: My Active Orders 11/04/17 17:59 Bedrest Bedside Commode [RC] ASDIRECTED Height and Weight [RC] 30 August Shower [RC] ASDIRECTED Consult to Case Management [CONS] Routine Consult to Missile Facilities Repairer [CONS] Routine Consult to Spiritual Care [CONS] Routine OT Evaluation and Treatment [CONS] Routine PT Evaluation and Treatment [CONS] Routine Acetaminophen [Tylenol] 650 mg PO Q4H PRN Albuterol/Ipratropium [DuoNeb 3.0-0.5 MG/3 ML] 3 ml NEB Q4H PRN Bisacodyl [Dulcolax] 5 mg PO DAILY PRN Docusate Sodium [Colace] 100 mg PO BID PRN Docusate Sodium/Sennosides [Senna Plus] 1 tab PO BID PRN Magnesium Hydroxide [Milk of Magnesia] 30 ml PO Q12H PRN Polyethylene Glycol 3350 [MiraLAX] 17 gm PO DAILY PRN Promethazine [Phenergan] 25 mg PO Q6H PRN Promethazine [Phenergan] 6.25 mg Sodium Chloride 0.9% [Normal Saline] 50 ml IV Q6H Temazepam [Restoril] 7.5 mg PO BEDTIME PRN oxyCODONE 5 mg PO Q4H PRN 11/04/17 18:00 Cardiac Monitoring [RC] INTERMITTENT Intake and Output [RC] 04,16 Oxygen Therapy [RC] PRN Pulse Oximetry [RC] PRN VTE/DVT Education [RC] PER UNIT ROUTINE Vital Signs [RC] Q4HR 11/04/17 18:04 RT Aerosol Therapy [RC] ASDIRECTED 11/04/17 18:07 traMADol [Ultram] 50 mg PO BID PRN 11/04/17 18:15 Warfarin [Coumadin] 2 mg PO MOWEFR 11/04/17 18:28 Cardiac Monitoring [RC] CONTINUOUS 11/04/17 19:00 Cooling Warming Measures [RC] ASDIRECTED Lidocaine 5% [Lidoderm 5%] 700 mg TOP Q24H Heat Therapy [OM.PC] Routine 11/04/17 21:00 Carvedilol [Coreg] 12.5 mg PO BID atorvaSTATin 10 mg PO BEDTIME 11/04/17 Dinner Heart Healthy Diet [DIET] 11/05/17 06:00 Levothyroxine [Synthroid] 200 mcg PO ACBRK 11/05/17 07:00 Remove Patch 0 ea TRDERM DAILY@0700 11/05/17 09:00 Amiodarone [Cordarone] 200 mg PO DAILY Furosemide [Lasix] 60 mg PO DAILY Spironolactone [Aldactone] 12.5 mg PO DAILY 11/05/17 18:07 Warfarin [Coumadin] 4 mg PO SUTUTHSA 11/06/17 05:11 BASIC METABOLIC PANEL,BMP [CHEM] AM CBC WITH AUTO DIFF [HEME] AM 11/07/17 05:11 BASIC METABOLIC PANEL,BMP [CHEM] AM CBC WITH AUTO DIFF [HEME] AM 11/07/17 19:00 Remove Patch 1 ea TRDERM Q72H 11/08/17 05:11 BASIC METABOLIC PANEL,BMP [CHEM] AM CBC WITH AUTO DIFF [HEME] AM 11/09/17 05:11 BASIC METABOLIC PANEL,BMP [CHEM] AM CBC WITH AUTO DIFF [HEME] AM 11/10/17 05:11 BASIC METABOLIC PANEL,BMP [CHEM] AM CBC WITH AUTO DIFF [HEME] AM 11/11/17 05:11 BASIC METABOLIC PANEL,BMP [CHEM] AM CBC WITH AUTO DIFF [HEME] AM - Plan Plan:: Assessment/Plan Comment:: Acute: Low back pain with intractable pain * CT scans performed at ED visit on 10/24/17 read as old kyphoplasty at L2, moderate to severe but stable old compression fractures at T4-5, severe compression fracture to T6 with interval change from prior study done 11/30/16 * He has seen a specialist in [place] with bone scan done last week according to his daughter * Daughter also reports that he has seen interventional radiology and there is no intervention that can be performed * He has been on morphine, tramadol, and percocet with minimal relief * Pain management as follows: --> patient reports that his pain has improved with the regimen below * Fentanyl 12 mcg transdermal patch q 72 hr * Lidocaine patch q 24 hr * Morphine 2 mg IV q 2 hr prn severe pain * oxycodone 5 mg po q 4 hr prn moderate pain * Tramadol 50 mg po BID prn pain * Heat therapy * Continue PT/OT Renal insufficiency * Cr 1.2, eGFR 43 today; Cr 1.7, eGFR 38 in ED * Appears to be close to baseline per records --> Acute on chronic kidney disease * Monitor Cardiomyopathy and hx of arrhythmia with AICD, stable * Patient reports he has not had any shocks in a long time * Continue home meds which includes coumadin --> INR was 2.36 on 11/04/17 * Continuous telemetry * Heart healthy diet Chronic: Cardiomyopathy Arrhythmia with AICD and hx of previous cardiac arrest HLD Chronic back pain OA Osteoporosis Hypothyroidism, chronic anticoagulation therapy, and impaired vision Plan: Admitted from ED to Med/Surg with Tele Pain management as above Other orders as indicated above CM/SW for discharge planning --> patient is open to rehab stay and would prefer [facility] Routine AM labs Continue home meds Heart Healthy diet DVT Prophylaxis: Warfarin (patient is on this at home) Code Status: CPR with DNI PCP: Dr. Kiel Cornell <Masood Huerta T - Last Filed: 11/05/17 17:03> - Patient Data Vitals - Most Recent: Last Vital Signs Temp 36.7 C 11/05/17 15:09 Pulse 64 11/05/17 15:09 Resp 18 11/05/17 15:09 BP 104/82 11/05/17 15:09 Pulse Ox 95 11/05/17 15:09 I&O - Last 24 Hours: Intake & Output 11/05/17 11/05/17 11/05/17 06:59 14:59 22:59 Intake Total 1395 300 Output Total 750 Balance 645 300 Lab Results Last 24 Hours: Laboratory Results - last 24 hr 11/04/17 11/05/17 11/05/17 Range/Units 14:05 06:15 06:15 WBC 6.31 (4.23-9.07) K/mm3 RBC 3.53 L (4.63-6.08) M/mm3 Hgb 12.2 L (13.7-17.5) gm/L Hct 38.1 L (40.1-51.0) % MCV 107.9 H (79.0-92.2) fl MCH 34.6 H (25.7-32.2) pg MCHC 32.0 L (32.2-35.5) g/dl RDW Std Deviation 51.8 H (35.1-43.9) fL Plt Count 249 (163-337) K/mm3 MPV 9.0 L (9.4-12.3) fl Neut % (Auto) 73.8 H (34.0-67.9) % Lymph % (Auto) 14.7 L (21.8-53.1) % [place] % (Auto) 10.6 (5.3-12.2) % Eos % (Auto) 0.5 L (0.8-7.0) Baso % (Auto) 0.2 (0.1-1.2) % Neut # (Auto) 4.66 (1.78-5.38) K/mm3 Lymph # (Auto) 0.93 L (1.32-3.57) K/mm3 [place] # (Auto) 0.67 (0.30-0.82) K/mm3 Eos # (Auto) 0.03 L (0.04-0.54) K/mm3 Baso # (Auto) 0.01 (0.01-0.08) K/mm3 Manual Slide Review Abnormal smear PT 25.3 H (9.5-12.1) SECONDS INR 2.36 Sodium 141 (136-145) mEq/L Potassium 4.5 (3.5-5.1) mEq/L Chloride 107 (98-107) mEq/L Carbon Dioxide 25 (21-32) mEq/L Anion Gap 13.5 (5-15) BUN 40 H (7-18) mg/dL Creatinine 1.2 (0.7-1.3) mg/dL Est Cr Clr Drug Dosing 46.47 mL/min Estimated GFR (MDRD) 58 (>60) mL/min BUN/Creatinine Ratio 33.3 H (14-18) Glucose 100 (83-115) mg/dL Calcium 8.3 L (8.5-10.1) mg/dL Med Orders - Current: Current Medications Acetaminophen (Tylenol) 650 mg PO Q4H PRN PRN Reason: Pain (Mild 1-3)/fever Albuterol/Ipratropium (Duoneb 3.0-0.5 Mg/3 Ml) 3 ml NEB Q4H PRN PRN Reason: Shortness Of Breath/wheezing Amiodarone HCl (Cordarone) 200 mg PO DAILY [facility] Last Admin: 11/05/17 08:29 Dose: 200 mg Bisacodyl (Dulcolax) 5 mg PO DAILY PRN PRN Reason: Constipation Last Admin: 11/05/17 06:24 Dose: 5 mg Carvedilol (Coreg) 12.5 mg PO BID [facility] Last Admin: 11/05/17 08:28 Dose: 12.5 mg Docusate Sodium (Colace) 100 mg PO BID PRN PRN Reason: Constipation Last Admin: 11/04/17 20:49 Dose: 100 mg Fentanyl (Duragesic) 12 mcg TRDERM Q72H [facility] Last Admin: 11/04/17 19:53 Dose: 12 mcg Furosemide (Lasix) 60 mg PO DAILY [facility] Last Admin: 11/05/17 08:28 Dose: 60 mg Promethazine HCl 6.25 mg/ (Sodium Chloride) 50.25 mls @ 100 mls/hr IV Q6H PRN PRN Reason: Nausea/Vomiting Levothyroxine Sodium (Synthroid) 200 mcg PO ACBRK [facility] Last Admin: 11/05/17 06:23 Dose: 200 mcg Lidocaine (Lidoderm 5%) 700 mg TOP Q24H [facility] Last Admin: 11/04/17 20:50 Dose: 700 mg Magnesium Hydroxide (Milk Of Magnesia) 30 ml PO Q12H PRN PRN Reason: Constipation Last Admin: 11/05/17 08:27 Dose: 30 ml Miscellaneous Information (Remove Patch) 1 ea TRDERM Q72H [facility] Miscellaneous Information (Remove Patch) 0 ea TRDERM DAILY@0700 [facility] Last Admin: 11/05/17 08:29 Dose: 1 ea Morphine Sulfate (Morphine) 2 mg IVPUSH Q2H PRN PRN Reason: Pain Last Admin: 11/05/17 02:11 Dose: 2 mg Oxycodone HCl (Oxycodone) 5 mg PO Q4H PRN PRN Reason: Pain (moderate 4-6) Last Admin: 11/05/17 15:45 Dose: 5 mg Atorvastatin 10 Mg 0 each PO BEDTIME [facility] Polyethylene Glycol (Miralax) 17 gm PO DAILY PRN PRN Reason: Constipation Promethazine HCl (Phenergan) 25 mg PO Q6H PRN PRN Reason: Nausea/Vomiting Senna/Docusate Sodium (Senna Plus) 1 tab PO BID PRN PRN Reason: Constipation Spironolactone (Aldactone) 12.5 mg PO DAILY [facility] Last Admin: 11/05/17 08:27 Dose: 12.5 mg Temazepam (Restoril) 7.5 mg PO BEDTIME PRN PRN Reason: Sleep Last Admin: 11/04/17 23:29 Dose: 7.5 mg Tramadol HCl (Ultram) 50 mg PO BID PRN PRN Reason: Pain Last Admin: 11/05/17 08:35 Dose: 50 mg Warfarin S[facility]) [facility]) [facility] Dis[facility] Medications Hydromorphone HCl (Dilaudid) 0.5 mg IVPUSH ONETIME ONE Stop: 11/04/17 18:25 Last Admin: 11/04/17 18:44 Dose: 0.5 mg Sodium Chloride (Normal Saline) 1,000 mls @ 100 mls/hr IV ASDIRECTED [facility] Last Admin: 11/05/17 01:45 Dose: 100 mls/hr Morphine Sulfate (Morphine) 2 mg IVPUSH ONETIME ONE Stop: 11/04/17 13:24 Last Admin: 11/04/17 14:09 Dose: 2 mg - My Orders Last 24 Hours: My Active Orders 11/04/17 17:48 Resuscitation Status Routine 11/04/17 19:00 fentaNYL [Duragesic] 12 mcg TRDERM Q72H 11/05/17 00:26 Antiembolic Hose [OM.PC] Routine - Plan Plan:: The patient was seen and examined at bedside in concert with the PA student. The assessment and plans were discussed and agreed upon with me. Patient is doing much better. He slept pretty good last night and now rates his pain to 10 with activity (38 at rest last night) and 2 at rest. He has been ambulating and working well with PT/OT. Will trim down his pain regimen.
--- NOTE | 2017-11-05 13:21 | PCM.PN ---
- General Info Date of Service: 11/05/17 Admission Dx/Problem (Free Text): Admission Diagnosis/Problem Admission Diagnosis/Problem Intractable back pain Subjective Update: In to see Christian. He is resting comfortably in bed. He appears to be in less pain than he was yesterday, and states that the pain meds that were initiated ( Fentanyl and lidocaine patch) seem to have helped his pain. Patient denies chest pain, GI/ issues. He does endorse chronic LOPEZ, but this is unchanged. Nursing reports that patient slept well overnight. Functional Status: Reports: Pain Controlled, Tolerating Diet, Ambulating, Urinating. Denies: New Symptoms - Patient Data Vitals - Most Recent: Last Vital Signs Temp 36.6 C 11/05/17 11:10 Pulse 63 11/05/17 11:10 Resp 20 11/05/17 11:10 BP 121/83 11/05/17 11:10 Pulse Ox 97 11/05/17 11:10 Weight - Most Recent: 86.137 kg I&O - Last 24 Hours: Intake & Output 11/04/17 11/05/17 11/05/17 22:59 06:59 14:59 Intake Total 180 1395 300 Output Total 750 Balance 180 645 300 Lab Results Last 24 Hours: Laboratory Results - last 24 hr 11/04/17 11/04/17 11/04/17 Range/Units 14:05 14:05 14:05 WBC 6.45 (4.23-9.07) K/mm3 RBC 3.56 L (4.63-6.08) M/mm3 Hgb 12.0 L (13.7-17.5) gm/L Hct 38.5 L (40.1-51.0) % MCV 108.1 H (79.0-92.2) fl MCH 33.7 H (25.7-32.2) pg MCHC 31.2 L (32.2-35.5) g/dl RDW Std Deviation 52.2 H (35.1-43.9) fL Plt Count 271 (163-337) K/mm3 MPV 9.0 L (9.4-12.3) fl Neut % (Auto) 74.9 H (34.0-67.9) % Lymph % (Auto) 12.6 L (21.8-53.1) % [place] % (Auto) 11.3 (5.3-12.2) % Eos % (Auto) 0.5 L (0.8-7.0) Baso % (Auto) 0.2 (0.1-1.2) % Neut # (Auto) 4.84 (1.78-5.38) K/mm3 Lymph # (Auto) 0.81 L (1.32-3.57) K/mm3 [place] # (Auto) 0.73 (0.30-0.82) K/mm3 Eos # (Auto) 0.03 L (0.04-0.54) K/mm3 Baso # (Auto) 0.01 (0.01-0.08) K/mm3 Manual Slide Review Abnormal smear PT 25.3 H (9.5-12.1) SECONDS INR 2.36 Sodium 141 (136-145) mEq/L Potassium 4.7 (3.5-5.1) mEq/L Chloride 106 (98-107) mEq/L Carbon Dioxide 27 (21-32) mEq/L Anion Gap 12.7 (5-15) BUN 49 H (7-18) mg/dL Creatinine 1.7 H (0.7-1.3) mg/dL Est Cr Clr Drug Dosing 32.80 mL/min Estimated GFR (MDRD) 38 (>60) mL/min BUN/Creatinine Ratio 28.8 H (14-18) Glucose 111 (83-115) mg/dL Calcium 8.3 L (8.5-10.1) mg/dL Magnesium 2.3 (1.8-2.4) mg/dl Total Bilirubin 0.6 (0.2-1.0) mg/dL AST 38 H (15-37) U/L ALT 35 (16-63) U/L Alkaline Phosphatase 85 (46-116) U/L C-Reactive Protein 2.2 H* (<1.0) mg/dL Total Protein 6.2 L (6.4-8.2) g/dl Albumin 2.7 L (3.4-5.0) g/dl Globulin 3.5 gm/dL Albumin/Globulin Ratio 0.8 L (1-2) Urine Color (Yellow) Urine Appearance (Clear) Urine pH (5.0-8.0) Ur Specific [place] (1.005-1.030) Urine Protein (Negative) Urine Glucose (UA) (Negative) Urine Ketones (Negative) Urine Occult Blood (Negative) Urine Nitrite (Negative) Urine Bilirubin (Negative) Urine Urobilinogen (0.2-1.0) Ur Leukocyte Esterase (Negative) Urine RBC (0-5) /hpf Urine WBC (0-5) /hpf Ur Epithelial Cells (0-5) /hpf Urine Bacteria (FEW) /hpf Urine Mucus (FEW) /hpf 11/04/17 11/05/17 11/05/17 Range/Units 15:05 06:15 06:15 WBC 6.31 (4.23-9.07) K/mm3 RBC 3.53 L (4.63-6.08) M/mm3 Hgb 12.2 L (13.7-17.5) gm/L Hct 38.1 L (40.1-51.0) % MCV 107.9 H (79.0-92.2) fl MCH 34.6 H (25.7-32.2) pg MCHC 32.0 L (32.2-35.5) g/dl RDW Std Deviation 51.8 H (35.1-43.9) fL Plt Count 249 (163-337) K/mm3 MPV 9.0 L (9.4-12.3) fl Neut % (Auto) 73.8 H (34.0-67.9) % Lymph % (Auto) 14.7 L (21.8-53.1) % [place] % (Auto) 10.6 (5.3-12.2) % Eos % (Auto) 0.5 L (0.8-7.0) Baso % (Auto) 0.2 (0.1-1.2) % Neut # (Auto) 4.66 (1.78-5.38) K/mm3 Lymph # (Auto) 0.93 L (1.32-3.57) K/mm3 [place] # (Auto) 0.67 (0.30-0.82) K/mm3 Eos # (Auto) 0.03 L (0.04-0.54) K/mm3 Baso # (Auto) 0.01 (0.01-0.08) K/mm3 Manual Slide Review Abnormal smear PT (9.5-12.1) SECONDS INR Sodium 141 (136-145) mEq/L Potassium 4.5 (3.5-5.1) mEq/L Chloride 107 (98-107) mEq/L Carbon Dioxide 25 (21-32) mEq/L Anion Gap 13.5 (5-15) BUN 40 H (7-18) mg/dL Creatinine 1.2 (0.7-1.3) mg/dL Est Cr Clr Drug Dosing 46.47 mL/min Estimated GFR (MDRD) 58 (>60) mL/min BUN/Creatinine Ratio 33.3 H (14-18) Glucose 100 (83-115) mg/dL Calcium 8.3 L (8.5-10.1) mg/dL Magnesium (1.8-2.4) mg/dl Total Bilirubin (0.2-1.0) mg/dL AST (15-37) U/L ALT (16-63) U/L Alkaline Phosphatase (46-116) U/L C-Reactive Protein (<1.0) mg/dL Total Protein (6.4-8.2) g/dl Albumin (3.4-5.0) g/dl Globulin gm/dL Albumin/Globulin Ratio (1-2) Urine Color Yellow (Yellow) Urine Appearance Clear (Clear) Urine pH 6.5 (5.0-8.0) Ur Specific [place] 1.020 (1.005-1.030) Urine Protein Negative (Negative) Urine Glucose (UA) Negative (Negative) Urine Ketones Negative (Negative) Urine Occult Blood Negative (Negative) Urine Nitrite Negative (Negative) Urine Bilirubin Negative (Negative) Urine Urobilinogen 4.0 H (0.2-1.0) Ur Leukocyte Esterase Negative (Negative) Urine RBC Not seen (0-5) /hpf Urine WBC 0-5 (0-5) /hpf Ur Epithelial Cells 0-5 (0-5) /hpf Urine Bacteria Not seen (FEW) /hpf Urine Mucus Not seen (FEW) /hpf Med Orders - Current: Current Medications Acetaminophen (Tylenol) 650 mg PO Q4H PRN PRN Reason: Pain (Mild 1-3)/fever Albuterol/Ipratropium (Duoneb 3.0-0.5 Mg/3 Ml) 3 ml NEB Q4H PRN PRN Reason: Shortness Of Breath/wheezing Amiodarone HCl (Cordarone) 200 mg PO DAILY [facility] Last Admin: 11/05/17 08:29 Dose: 200 mg Bisacodyl (Dulcolax) 5 mg PO DAILY PRN PRN Reason: Constipation Last Admin: 11/05/17 06:24 Dose: 5 mg Carvedilol (Coreg) 12.5 mg PO BID [facility] Last Admin: 11/05/17 08:28 Dose: 12.5 mg Docusate Sodium (Colace) 100 mg PO BID PRN PRN Reason: Constipation Last Admin: 11/04/17 20:49 Dose: 100 mg Fentanyl (Duragesic) 12 mcg TRDERM Q72H [facility] Last Admin: 11/04/17 19:53 Dose: 12 mcg Furosemide (Lasix) 60 mg PO DAILY [facility] Last Admin: 11/05/17 08:28 Dose: 60 mg Promethazine HCl 6.25 mg/ (Sodium Chloride) 50.25 mls @ 100 mls/hr IV Q6H PRN PRN Reason: Nausea/Vomiting Levothyroxine Sodium (Synthroid) 200 mcg PO ACBRK [facility] Last Admin: 11/05/17 06:23 Dose: 200 mcg Lidocaine (Lidoderm 5%) 700 mg TOP Q24H [facility] Last Admin: 11/04/17 20:50 Dose: 700 mg Magnesium Hydroxide (Milk Of Magnesia) 30 ml PO Q12H PRN PRN Reason: Constipation Last Admin: 11/05/17 08:27 Dose: 30 ml Miscellaneous Information (Remove Patch) 1 ea TRDERM Q72H [facility] Miscellaneous Information (Remove Patch) 0 ea TRDERM DAILY@0700 [facility] Last Admin: 11/05/17 08:29 Dose: 1 ea Morphine Sulfate (Morphine) 2 mg IVPUSH Q2H PRN PRN Reason: Pain Last Admin: 11/05/17 02:11 Dose: 2 mg Oxycodone HCl (Oxycodone) 5 mg PO Q4H PRN PRN Reason: Pain (moderate 4-6) Last Admin: 11/05/17 12:03 Dose: 5 mg Atorvastatin 10 Mg 0 each PO BEDTIME [facility] Polyethylene Glycol (Miralax) 17 gm PO DAILY PRN PRN Reason: Constipation Promethazine HCl (Phenergan) 25 mg PO Q6H PRN PRN Reason: Nausea/Vomiting Senna/Docusate Sodium (Senna Plus) 1 tab PO BID PRN PRN Reason: Constipation Spironolactone (Aldactone) 12.5 mg PO DAILY [facility] Last Admin: 11/05/17 08:27 Dose: 12.5 mg Temazepam (Restoril) 7.5 mg PO BEDTIME PRN PRN Reason: Sleep Last Admin: 11/04/17 23:29 Dose: 7.5 mg Tramadol HCl (Ultram) 50 mg PO BID PRN PRN Reason: Pain Last Admin: 11/05/17 08:35 Dose: 50 mg Warfarin Sodium (Coumadin) 2 mg PO MOWEFR [facility] Warfarin Sodium (Coumadin) 4 mg PO SUTUTHSA [facility] Discontinued Medications Hydromorphone HCl (Dilaudid) 0.5 mg IVPUSH ONETIME ONE Stop: 11/04/17 18:25 Last Admin: 11/04/17 18:44 Dose: 0.5 mg Sodium Chloride (Normal Saline) 1,000 mls @ 100 mls/hr IV ASDIRECTED [facility] Last Admin: 11/05/17 01:45 Dose: 100 mls/hr Morphine Sulfate (Morphine) 2 mg IVPUSH ONETIME ONE Stop: 11/04/17 13:24 Last Admin: 11/04/17 14:09 Dose: 2 mg - My Orders Last 24 Hours: My Active Orders 11/04/17 17:48 Resuscitation Status Routine 11/04/17 19:00 fentaNYL [Duragesic] 12 mcg TRDERM Q72H 11/05/17 00:26 Antiembolic Hose [OM.PC] Routine - Plan Plan:: Assessment/Plan Comment:: Acute: Low back pain with intractable pain * CT scans performed at ED visit on 10/24/17 read as old kyphoplasty at L2, moderate to severe but stable old compression fractures at T4-5, severe compression fracture to T6 with interval change from prior study done 11/30/16 * He has seen a specialist in [place] with bone scan done last week according to his daughter * Daughter also reports that he has seen interventional radiology and there is no intervention that can be performed * He has been on morphine, tramadol, and percocet with minimal relief * Pain management as follows: --> patient reports that his pain has improved with the regimen below * Fentanyl 12 mcg transdermal patch q 72 hr * Lidocaine patch q 24 hr * Morphine 2 mg IV q 2 hr prn severe pain * oxycodone 5 mg po q 4 hr prn moderate pain * Tramadol 50 mg po BID prn pain * Heat therapy * Continue PT/OT Renal insufficiency * Cr 1.2, eGFR 43 today; Cr 1.7, eGFR 38 in ED * Appears to be close to baseline per records --> Acute on chronic kidney disease * Monitor Cardiomyopathy and hx of arrhythmia with AICD, stable * Patient reports he has not had any shocks in a long time * Continue home meds which includes coumadin --> INR was 2.36 on 11/04/17 * Continuous telemetry * Heart healthy diet Chronic: Cardiomyopathy Arrhythmia with AICD and hx of previous cardiac arrest HLD Chronic back pain OA Osteoporosis Hypothyroidism, chronic anticoagulation therapy, and impaired vision Plan: Admitted from ED to Med/Surg with Tele Pain management as above Other orders as indicated above CM/SW for discharge planning --> patient is open to rehab stay and would prefer [facility] Routine AM labs Continue home meds Heart Healthy diet DVT Prophylaxis: Warfarin (patient is on this at home) Code Status: CPR with DNI PCP: Dr. Kiel Cornell
[2017-11-05] MEDS ORDERED: HYDROmorphone 0.5 MG/0.5 ML SYRINGE IVPUSH PRN (17:06)
[2017-11-05] MEDS ORDERED: Warfarin 4 MG Tab PO SCH (18:00)
[2017-11-05] MEDS: Lidocaine 5% 700 MG Patch TOP SCH (18:58)
[2017-11-05] MEDS: Temazepam 7.5 MG Cap PO PRN (21:21)
[2017-11-06] MEDS: oxyCODONE 5 MG Tab PO PRN ×5 (02:38→22:19)
[2017-11-06] MEDS: Levothyroxine 100 MCG Tab PO SCH (07:17)
--- NOTE | 2017-11-06 08:37 | PCM.PN ---
<Ava Harris - Last Filed: 11/06/17 13:58> - General Info Date of Service: 11/06/17 Subjective Update: In to see Christian. Observed him walking with therapy earlier and he appeared to be tolerating the activity well. He reports continued improved pain, but does state it is still 10/10 with movement. Denies chest pain, dyspnea, issues. He had a good BM yesterday and felt much better after. Patient reports LOPEZ is stable. Functional Status: Reports: Pain Controlled, Tolerating Diet, Ambulating (with assistance ), Urinating - Review of Systems General: Reports: Weakness (improving ). Denies: Fever HEENT: Reports: No Symptoms Pulmonary: Reports: No Symptoms Cardiovascular: Reports: Dyspnea on Exertion (chronic and stable ), Edema. Denies: Chest Pain, Palpitations Gastrointestinal: Reports: No Symptoms. Denies: Abdominal Pain, Constipation, Diarrhea, Nausea, Vomiting Genitourinary: Reports: No Symptoms. Denies: Dysuria, Frequency, Burning Musculoskeletal: Reports: Back Pain (improved ) Skin: Reports: No Symptoms Neurological: Reports: No Symptoms. Denies: Confusion, Dizziness, Headache, Numbness, Paresthesia Psychiatric: Reports: No Symptoms. Denies: Confusion, Depression, Anxiety - Patient Data Vitals - Most Recent: Last Vital Signs Temp 98.1 F 11/06/17 07:33 Pulse 91 11/06/17 07:33 Resp 20 11/06/17 07:33 BP 135/99 H 11/06/17 07:33 Pulse Ox 94 L 11/06/17 07:33 Weight - Most Recent: 86.183 kg I&O - Last 24 Hours: Intake & Output 11/05/17 11/06/17 11/06/17 22:59 06:59 14:59 Intake Total 860 300 Output Total 200 550 Balance 660 -250 Lab Results Last 24 Hours: Laboratory Results - last 24 hr 11/06/17 11/06/17 Range/Units 05:50 05:50 WBC 6.64 (4.23-9.07) K/mm3 RBC 3.68 L (4.63-6.08) M/mm3 Hgb 12.6 L (13.7-17.5) gm/L Hct 39.4 L (40.1-51.0) % MCV 107.1 H (79.0-92.2) fl MCH 34.2 H (25.7-32.2) pg MCHC 32.0 L (32.2-35.5) g/dl RDW Std Deviation 51.3 H (35.1-43.9) fL Plt Count 261 (163-337) K/mm3 MPV 9.1 L (9.4-12.3) fl Neut % (Auto) 74.4 H (34.0-67.9) % Lymph % (Auto) 13.7 L (21.8-53.1) % [place] % (Auto) 10.8 (5.3-12.2) % Eos % (Auto) 0.6 L (0.8-7.0) Baso % (Auto) 0.2 (0.1-1.2) % Neut # (Auto) 4.94 (1.78-5.38) K/mm3 Lymph # (Auto) 0.91 L (1.32-3.57) K/mm3 [place] # (Auto) 0.72 (0.30-0.82) K/mm3 Eos # (Auto) 0.04 (0.04-0.54) K/mm3 Baso # (Auto) 0.01 (0.01-0.08) K/mm3 Manual Slide Review Abnormal smear Sodium 138 (136-145) mEq/L Potassium 4.7 (3.5-5.1) mEq/L Chloride 105 (98-107) mEq/L Carbon Dioxide 23 (21-32) mEq/L Anion Gap 14.7 (5-15) BUN 42 H (7-18) mg/dL Creatinine 1.4 H (0.7-1.3) mg/dL Est Cr Clr Drug Dosing 39.83 mL/min Estimated GFR (MDRD) 48 (>60) mL/min BUN/Creatinine Ratio 30.0 H (14-18) Glucose 109 (83-115) mg/dL Calcium 8.6 (8.5-10.1) mg/dL Med Orders - Current: Current Medications Acetaminophen (Tylenol) 650 mg PO Q4H PRN PRN Reason: Pain (Mild 1-3)/fever Last Admin: 11/06/17 00:32 Dose: 650 mg Albuterol/Ipratropium (Duoneb 3.0-0.5 Mg/3 Ml) 3 ml NEB Q4H PRN PRN Reason: Shortness Of Breath/wheezing Amiodarone HCl (Cordarone) 200 mg PO DAILY [facility] Last Admin: 11/05/17 08:29 Dose: 200 mg Bisacodyl (Dulcolax) 5 mg PO DAILY PRN PRN Reason: Constipation Last Admin: 11/05/17 06:24 Dose: 5 mg Carvedilol (Coreg) 12.5 mg PO BID [facility] Last Admin: 11/05/17 21:22 Dose: 12.5 mg Docusate Sodium (Colace) 100 mg PO BID PRN PRN Reason: Constipation Last Admin: 11/04/17 20:49 Dose: 100 mg Fentanyl (Duragesic) 12 mcg TRDERM Q72H [facility] Last Admin: 11/04/17 19:53 Dose: 12 mcg Furosemide (Lasix) 60 mg PO DAILY [facility] Last Admin: 11/05/17 08:28 Dose: 60 mg Hydromorphone HCl (Dilaudid) 0.5 mg IVPUSH Q4H PRN PRN Reason: Severe pain Promethazine HCl 6.25 mg/ (Sodium Chloride) 50.25 mls @ 100 mls/hr IV Q6H PRN PRN Reason: Nausea/Vomiting Levothyroxine Sodium (Synthroid) 200 mcg PO ACBRK [facility] Last Admin: 11/06/17 07:17 Dose: 200 mcg Lidocaine (Lidoderm 5%) 700 mg TOP Q24H [facility] Last Admin: 11/05/17 18:58 Dose: 700 mg Magnesium Hydroxide (Milk Of Magnesia) 30 ml PO Q12H PRN PRN Reason: Constipation Last Admin: 11/05/17 08:27 Dose: 30 ml Miscellaneous Information (Remove Patch) 1 ea TRDERM Q72H [facility] Miscellaneous Information (Remove Patch) 0 ea TRDERM DAILY@0700 [facility] Last Admin: 11/05/17 08:29 Dose: 1 ea Oxycodone HCl (Oxycodone) 5 mg PO Q4H PRN PRN Reason: Pain (moderate 4-6) Last Admin: 11/06/17 07:16 Dose: 5 mg Atorvastatin 10 Mg 0 each PO BEDTIME [facility] Last Admin: 11/05/17 21:32 Dose: Not Given Polyethylene Glycol (Miralax) 17 gm PO DAILY PRN PRN Reason: Constipation Promethazine HCl (Phenergan) 25 mg PO Q6H PRN PRN Reason: Nausea/Vomiting Senna/Docusate Sodium (Senna Plus) 1 tab PO BID PRN PRN Reason: Constipation Spironolactone (Aldactone) 12.5 mg PO DAILY [facility] Last Admin: 11/05/17 08:27 Dose: 12.5 mg Temazepam (Restoril) 7.5 mg PO BEDTIME PRN PRN Reason: Sleep Last Admin: 11/05/17 21:21 Dose: 7.5 mg Warfarin Sodium (Coumadin) 2 mg PO MOWEFR [facility] Warfarin Sodium (Coumadin) 4 mg PO SUTUTHSA [facility] Last Admin: 11/05/17 18:58 Dose: 4 mg Discontinued Medications Hydromorphone HCl (Dilaudid) 0.5 mg IVPUSH ONETIME ONE Stop: 11/04/17 18:25 Last Admin: 11/04/17 18:44 Dose: 0.5 mg Sodium Chloride (Normal Saline) 1,000 mls @ 100 mls/hr IV ASDIRECTED [facility] Last Admin: 11/05/17 01:45 Dose: 100 mls/hr Morphine Sulfate (Morphine) 2 mg IVPUSH ONETIME ONE Stop: 11/04/17 13:24 Last Admin: 11/04/17 14:09 Dose: 2 mg Morphine Sulfate (Morphine) 2 mg IVPUSH Q2H PRN PRN Reason: Pain Last Admin: 11/05/17 02:11 Dose: 2 mg Tramadol HCl (Ultram) 50 mg PO BID PRN PRN Reason: Pain Last Admin: 11/05/17 08:35 Dose: 50 mg - Exam Quality Assessment: DVT Prophylaxis (MANAV hobson ). No: Supplemental Oxygen General: Alert, Oriented, Cooperative, No Acute Distress HEENT: Pupils Equal, Pupils Reactive, EOMI, Mucous Membr. Moist/[place] Neck: Supple, Trachea Midline. No: Lymphadenopathy Lungs: Clear to Auscultation, Normal Respiratory Effort Cardiovascular: Regular Rate, Regular Rhythm, No Murmurs GI/Abdominal Exam: Normal Bowel Sounds, Soft, Non-Tender, Distended (mild, improved ) (Male) Exam: Deferred Back Exam: Normal Inspection, Decreased Range of Motion, Vertebral Tenderness Extremities: Normal Inspection, Normal Range of Motion, Non-Tender, Pedal Edema (1+ b/l LE ) Peripheral Pulses: 1+: Posterior Tibial (L), Posterior Tibial (R), Dorsalis Pedis (L), Dorsalis Pedis (R) Skin: Warm, Dry, Intact, Ecchymosis (scattered (patient chronically on coumadin therapy) ) Neurological: No New Focal Deficit, Strength Equal Bilateral, Cranial Nerves Intact (grossly) Psy/Mental Status: Alert, Normal Affect, Normal Mood - Problem List Review Problem List Initiated/Reviewed/Updated: Yes - My Orders Last 24 Hours: My Active Orders 11/05/17 09:00 Amiodarone [Cordarone] 200 mg PO DAILY Furosemide [Lasix] 60 mg PO DAILY Spironolactone [Aldactone] 12.5 mg PO DAILY 11/05/17 18:00 Warfarin [Coumadin] 4 mg PO SUTUTHSA 11/05/17 21:00 Patient's Own Medication [Ptom] 0 each PO BEDTIME 11/06/17 18:00 Warfarin [Coumadin] 2 mg PO MOWEFR 11/07/17 05:11 BASIC METABOLIC PANEL,BMP [CHEM] AM CBC WITH AUTO DIFF [HEME] AM 11/07/17 19:00 Remove Patch 1 ea TRDERM Q72H 11/08/17 05:11 BASIC METABOLIC PANEL,BMP [CHEM] AM CBC WITH AUTO DIFF [HEME] AM 11/09/17 05:11 BASIC METABOLIC PANEL,BMP [CHEM] AM CBC WITH AUTO DIFF [HEME] AM 11/10/17 05:11 BASIC METABOLIC PANEL,BMP [CHEM] AM CBC WITH AUTO DIFF [HEME] AM 11/11/17 05:11 BASIC METABOLIC PANEL,BMP [CHEM] AM CBC WITH AUTO DIFF [HEME] AM - Plan Plan:: Assessment/Plan Comment:: Acute: Low back pain with intractable pain, improving * CT scans performed at ED visit on 10/24/17 read as old kyphoplasty at L2, moderate to severe but stable old compression fractures at T4-5, severe compression fracture to T6 with interval change from prior study done 11/30/16 * He has seen a specialist in [place] with bone scan done last week according to his daughter --> report retrieved and read as the diminished overall intensity of uptake in the mid thoracic spine at a similar level to prior study suggests chronic compression deformity with no new areas of activity detected in the interval * Daughter also reports that he has seen interventional radiology and there is no intervention that can be performed * He has been on morphine, tramadol, and percocet with minimal relief * Pain management as follows: --> patient reports that his pain has improved with the regimen below, continue to adjust as needed * Fentanyl 12 mcg transdermal patch q 72 hr * Lidocaine patch q 24 hr * Morphine 2 mg IV q 2 hr prn severe pain --> discontinued with new order of dilaudid 0.5 mg q 4 hr prn severe pain * oxycodone 5 mg po q 4 hr prn moderate pain * Tramadol 50 mg po BID prn pain --> d/c'd * Heat therapy * Continue PT/OT --> they recommend discharge to SNF/rehab with therapy Renal insufficiency * Cr 1.4, eGFR 48 today; Cr 1.2, eGFR 43 yesterday; Cr 1.7, eGFR 38 in ED * Appears to be close to baseline per records --> Acute on chronic kidney disease * Monitor Cardiomyopathy and hx of arrhythmia with AICD, stable * Patient reports he has not had any shocks in a long time * Continue home meds which includes coumadin --> INR was 2.36 on 11/04/17 and 1.86 on 11/06/17 --> pharmacy to review and dose coumadin accordingly * Continuous telemetry * Heart healthy diet Chronic: Cardiomyopathy Arrhythmia with AICD and hx of previous cardiac arrest HLD Chronic back pain OA Osteoporosis Hypothyroidism Chronic anticoagulation therapy Impaired vision Plan: Admitted from ED to Med/Surg with Tele Pain management as above Other orders as indicated above CM/SW for discharge planning --> patient has been accepted to [facility]; plan for discharge tomorrow, 11/07/17 Routine AM labs Continue home meds Heart Healthy diet DVT Prophylaxis: Warfarin (patient is on this at home) Code Status: CPR with DNI PCP: Dr. Kiel Cornell <Masood Huerta T - Last Filed: 11/06/17 17:42> - Patient Data Vitals - Most Recent: Last Vital Signs Temp 36.7 C 11/06/17 07:33 Pulse 109 H 11/06/17 14:46 Resp 16 11/06/17 14:46 BP 130/93 H 11/06/17 14:46 Pulse Ox 90 L 11/06/17 14:46 I&O - Last 24 Hours: Intake & Output 11/06/17 11/06/17 11/06/17 06:59 14:59 22:59 Intake Total 300 560 350 Output Total 749 8234 Balance -250 560 -2123 Lab Results Last 24 Hours: Laboratory Results - last 24 hr 11/06/17 11/06/17 11/06/17 Range/Units 05:50 05:50 05:50 WBC 6.64 (4.23-9.07) K/mm3 RBC 3.68 L (4.63-6.08) M/mm3 Hgb 12.6 L (13.7-17.5) gm/L Hct 39.4 L (40.1-51.0) % MCV 107.1 H (79.0-92.2) fl MCH 34.2 H (25.7-32.2) pg MCHC 32.0 L (32.2-35.5) g/dl RDW Std Deviation 51.3 H (35.1-43.9) fL Plt Count 261 (163-337) K/mm3 MPV 9.1 L (9.4-12.3) fl Neut % (Auto) 74.4 H (34.0-67.9) % Lymph % (Auto) 13.7 L (21.8-53.1) % [place] % (Auto) 10.8 (5.3-12.2) % Eos % (Auto) 0.6 L (0.8-7.0) Baso % (Auto) 0.2 (0.1-1.2) % Neut # (Auto) 4.94 (1.78-5.38) K/mm3 Lymph # (Auto) 0.91 L (1.32-3.57) K/mm3 [place] # (Auto) 0.72 (0.30-0.82) K/mm3 Eos # (Auto) 0.04 (0.04-0.54) K/mm3 Baso # (Auto) 0.01 (0.01-0.08) K/mm3 Manual Slide Review Abnormal smear PT 19.8 H (9.5-12.1) SECONDS INR 1.84 Sodium 138 (136-145) mEq/L Potassium 4.7 (3.5-5.1) mEq/L Chloride 105 (98-107) mEq/L Carbon Dioxide 23 (21-32) mEq/L Anion Gap 14.7 (5-15) BUN 42 H (7-18) mg/dL Creatinine 1.4 H (0.7-1.3) mg/dL Est Cr Clr Drug Dosing 39.83 mL/min Estimated GFR (MDRD) 48 (>60) mL/min BUN/Creatinine Ratio 30.0 H (14-18) Glucose 109 (83-115) mg/dL Calcium 8.6 (8.5-10.1) mg/dL Med Orders - Current: Current Medications Acetaminophen (Tylenol) 650 mg PO Q4H PRN PRN Reason: Pain (Mild 1-3)/fever Last Admin: 11/06/17 00:32 Dose: 650 mg Albuterol/Ipratropium (Duoneb 3.0-0.5 Mg/3 Ml) 3 ml NEB Q4H PRN PRN Reason: Shortness Of Breath/wheezing Amiodarone HCl (Cordarone) 200 mg PO DAILY [facility] Last Admin: 11/06/17 09:16 Dose: 200 mg Bisacodyl (Dulcolax) 5 mg PO DAILY PRN PRN Reason: Constipation Last Admin: 11/05/17 06:24 Dose: 5 mg Carvedilol (Coreg) 12.5 mg PO BID [facility] Last Admin: 11/06/17 09:16 Dose: 12.5 mg Docusate Sodium (Colace) 100 mg PO BID PRN PRN Reason: Constipation Last Admin: 11/04/17 20:49 Dose: 100 mg Fentanyl (Duragesic) 12 mcg TRDERM Q72H [facility] Last Admin: 11/04/17 19:53 Dose: 12 mcg Furosemide (Lasix) 60 mg PO DAILY [facility] Last Admin: 11/06/17 09:16 Dose: 60 mg Hydromorphone HCl (Dilaudid) 0.5 mg IVPUSH Q4H PRN PRN Reason: Severe pain Promethazine HCl 6.25 mg/ (Sodium Chloride) 50.25 mls @ 100 mls/hr IV Q6H PRN PRN Reason: Nausea/Vomiting Levothyroxine Sodium (Synthroid) 200 mcg PO ACBRK [facility] Last Admin: 11/06/17 07:17 Dose: 200 mcg Lidocaine (Lidoderm 5%) 700 mg TOP Q24H [facility] Last Admin: 11/05/17 18:58 Dose: 700 mg Magnesium Hydroxide (Milk Of Magnesia) 30 ml PO Q12H PRN PRN Reason: Constipation Last Admin: 11/05/17 08:27 Dose: 30 ml Miscellaneous Information (Remove Patch) 1 ea TRDERM Q72H [facility] Miscellaneous Information (Remove Patch) 0 ea TRDERM DAILY@0700 [facility] Last Admin: 11/06/17 09:17 Dose: 1 ea Oxycodone HCl (Oxycodone) 7.5 mg PO Q4H PRN PRN Reason: Pain (moderate 4-6) Last Admin: 11/06/17 17:36 Dose: 7.5 mg Atorvastatin 10 Mg 0 each PO BEDTIME [facility] Last Admin: 11/05/17 21:32 Dose: Not Given Polyethylene Glycol (Miralax) 17 gm PO DAILY PRN PRN Reason: Constipation Promethazine HCl (Phenergan) 25 mg PO Q6H PRN PRN Reason: Nausea/Vomiting Senna/Docusate Sodium (Senna Plus) 1 tab PO BID PRN PRN Reason: Constipation Spironolactone (Aldactone) 12.5 mg PO DAILY [facility] Last Admin: 11/06/17 09:16 Dose: 12.5 mg Temazepam (Restoril) 7.5 mg PO BEDTIME PRN PRN Reason: Sleep Last Admin: 11/05/17 21:21 Dose: 7.5 mg Warfarin Sodium (Coumadin) 2 mg PO MOWEFR [facility] Warfarin Sodium (Coumadin) 4 mg PO SUTUTHSA [facility] Last Admin: 11/05/17 18:58 Dose: 4 mg Warfarin Sodium (Pharmacy To Dose - Warfarin) 0 dose .XX ASDIRECTED PRN PRN Reason: RX TO DOSE COUMADIN Warfarin Sodium (Coumadin) 6 mg PO QPM [facility] Stop: 11/06/17 21:00 Last Admin: 11/06/17 17:37 Dose: 6 mg Discontinued Medications Hydromorphone HCl (Dilaudid) 0.5 mg IVPUSH ONETIME ONE Stop: 11/04/17 18:25 Last Admin: 11/04/17 18:44 Dose: 0.5 mg Sodium Chloride (Normal Saline) 1,000 mls @ 100 mls/hr IV ASDIRECTED [facility] Last Admin: 11/05/17 01:45 Dose: 100 mls/hr Morphine Sulfate (Morphine) 2 mg IVPUSH ONETIME ONE Stop: 11/04/17 13:24 Last Admin: 11/04/17 14:09 Dose: 2 mg Morphine Sulfate (Morphine) 2 mg IVPUSH Q2H PRN PRN Reason: Pain Last Admin: 11/05/17 02:11 Dose: 2 mg Oxycodone HCl (Oxycodone) 5 mg PO Q4H PRN PRN Reason: Pain (moderate 4-6) Last Admin: 11/06/17 07:16 Dose: 5 mg Tramadol HCl (Ultram) 50 mg PO BID PRN PRN Reason: Pain Last Admin: 11/05/17 08:35 Dose: 50 mg - My Orders Last 24 Hours: My Active Orders 11/05/17 17:06 HYDROmorphone [Dilaudid] 0.5 mg IVPUSH Q4H PRN - Plan Plan:: The patient was seen and examined at bedside in concert with the PA student. The assessment and plans were discussed and agreed upon with me.
[2017-11-06] MEDS: Carvedilol 12.5 MG Tab PO SCH ×2 (09:16→21:04)
[2017-11-06] MEDS: Spironolactone 25 MG Tab PO SCH (09:16)
[2017-11-06] MEDS: Furosemide 40 MG Tab PO SCH (09:16)
[2017-11-06] MEDS: Amiodarone 200 MG Tab PO SCH (09:16)
[2017-11-06] MEDS ORDERED: Warfarin 3 MG Tab PO SCH (18:00)
[2017-11-06] MEDS: Lidocaine 5% 700 MG Patch TOP SCH (19:12)
[2017-11-07] MEDS: oxyCODONE 5 MG Tab PO PRN ×2 (06:36→12:27)
[2017-11-07] MEDS: Levothyroxine 100 MCG Tab PO SCH (06:36)
[2017-11-07 08:12] VITALS: BP 143/82
[2017-11-07] MEDS: Amiodarone 200 MG Tab PO SCH (08:30)
[2017-11-07] MEDS: Furosemide 40 MG Tab PO SCH (08:31)
[2017-11-07] MEDS: Spironolactone 25 MG Tab PO SCH (08:31)
[2017-11-07] MEDS: Carvedilol 12.5 MG Tab PO SCH (08:31)
--- NOTE | 2017-11-07 08:38 | PCM.DCSUM1 ---
<Ava Harris - Last Filed: 11/07/17 13:15> Discharge Summary - Hospital Course HPI Initial Comments: This is an 86 y/o male with PMHx significant for cardiomyopathy, arrhythmia with AICD and hx of previous cardiac arrest, HLD, chronic back pain, OA, osteoporosis, hypothyroidism, chronic anticoagulation therapy, and impaired vision who comes in intractable low back pain. Patient was previously seen in the ED on 10/24/[address] scans performed at that time and read as old kyphoplasty at L2, moderate to severe but stable old compression fractures at T4 -5, severe compression fracture to T6 with interval change from prior study done 11/30/16. He has seen a specialist in [place] with bone scan done last week according to his daughter. His work-up in the ED included CBC that was remarkable for Hgb 12.0, MCV 108.1, 74.9% neutrophils. CMP remarkable for BUN 49, Cr 1.7, eGFR 38, Calcium 8.3, albumin 2.7. CRP was 2.2. UA negative for UTI. Patient reports that he has been experiencing worsening acute on chronic back pain. Family also reports that patient has become very weak and has had multiple falls at home with last one being yesterday evening. Family present state that patient has multiple medical problems and is unable to take care of himself at this point in time. He denies any incontinence. He does endorse some constipation with taking pain medications. He admits to not taking his diuretic as directed secondary to it being too difficult to get to the bathroom. He is subsequently admitted to Med/Surg with Tele. He is a former smoker. Code status is CPR with DNI. PCP is Dr. Cornell. Diagnosis: Stroke: No Modified Daniels Scale: No Symptoms at All Modified Daniels Scale Score: 0 - Discharge Data Discharge Date: 11/07/17 Discharge Disposition: DC/Tfer to SNF 03 Condition: Good - Patient Summary/Data Operative Procedure(s) Performed: None Complications: None Consults: Consultations 11/04/17 17:59 Consult to Case Management [CONS] Routine Consult to Seed Cleaning Manager [CONS] Routine Consult to Spiritual Care [CONS] Routine OT Evaluation and Treatment [CONS] Routine PT Evaluation and Treatment [CONS] Routine Labs Pending at D/C: None Recommended Follow-up Testing/Procedures: PCP in 1-2 weeks Planned Operative Procedure(s) after DC: None Hospital Course: Assessment/Plan Acute: Low back pain with intractable pain, improving * CT scans performed at ED visit on 10/24/17 read as old kyphoplasty at L2, moderate to severe but stable old compression fractures at T4-5, severe compression fracture to T6 with interval change from prior study done 11/30/16 * He has seen a specialist in [place] with bone scan done last week according to his daughter --> report retrieved and read as the diminished overall intensity of uptake in the mid thoracic spine at a similar level to prior study suggests chronic compression deformity with no new areas of activity detected in the interval * Daughter also reports that he has seen interventional radiology and there is no intervention that can be performed * He has been on morphine, tramadol, and percocet with minimal relief * Pain management as follows: --> patient reports that his pain has improved with the regimen below, continue to adjust as needed * Fentanyl 12 mcg transdermal patch q 72 hr * Lidocaine patch q 24 hr * Morphine 2 mg IV q 2 hr prn severe pain --> discontinued with new order of dilaudid 0.5 mg q 4 hr prn severe pain * oxycodone 5 mg po q 4 hr prn moderate pain * Tramadol 50 mg po BID prn pain --> d/c'd * Heat therapy * Continue PT/OT --> they recommend discharge to SNF/rehab with therapy Renal insufficiency * Cr 1.2, eGFR 42 today; Cr 1.4, eGFR 48 yesterday; Cr 1.7, eGFR 38 in ED * Appears to be close to baseline per records --> Acute on chronic kidney disease * Monitor Cardiomyopathy and hx of arrhythmia with AICD, stable * Patient reports he has not had any shocks in a long time * Continue home meds which includes coumadin --> INR was 2.36 on 11/04/17 and 1.86 on 11/06/17 --> pharmacy to review and dose coumadin accordingly * Continuous telemetry * Heart healthy diet Chronic: Cardiomyopathy Arrhythmia with AICD and hx of previous cardiac arrest HLD Chronic back pain OA Osteoporosis Hypothyroidism Chronic anticoagulation therapy Impaired vision Plan: Admitted from ED to Med/Surg with Tele Pain management as above Other orders as indicated above CM/SW for discharge planning --> patient has been accepted to [facility] and discharged today, 11/07/17 Routine AM labs Continue home meds Heart Healthy diet DVT Prophylaxis: Warfarin (patient is on this at home) Code Status: CPR with DNI PCP: Dr. Kiel Cornell [facility] Course: Christian was admitted for intractable back pain. He has a history of chronic back pain. He also has a significant cardiac history (cardiomyopathy and arrhythmia with AICD and hx of previous cardiac arrest). He has improved during his admission. Patient was previously seen in the ED on 10/24/[address] scans performed at that time and read as old kyphoplasty at L2, moderate to severe but stable old compression fractures at T4-5, severe compression fracture to T6 with interval change from prior study done 11/30/16. He has seen a specialist in [place] with bone scan done last week according to his daughter. Bone scan records retrieved and read as the diminished overall intensity of uptake in the mid thoracic spine at a similar level to prior study suggests chronic compression deformity with no new areas of activity detected in the interval. Daughter also reported that patient has seen interventional radiology and there is no intervention that can be performed. His work-up in the ED included CBC that was remarkable for Hgb 12.0, MCV 108.1, 74.9% neutrophils. CMP remarkable for BUN 49, Cr 1.7, eGFR 38, Calcium 8.3, albumin 2.7. CRP was 2.2. UA negative for UTI. PT/OT was consulted and recommended SNF/Rehab stay. Pain management during admission was as follows: Fentanyl 12 mcg transdermal patch q 72 hr, Lidocaine patch q 24 hr, Morphine 2 mg IV q 2 hr prn severe pain which was discontinued with new order of dilaudid 0.5 mg q 4 hr prn severe pain, oxycodone 5 mg po q 4 hr prn moderate pain which was changed to 7.5 mg po q 6 hr prn, Tramadol 50 mg po BID prn pain which was discontinued prior to discharge , and heat therapy. Labs during admission significant for renal insufficiency which was at patient's baseline. With patient's heart history, he was placed on continuous telemetry. INR initially 2.36 with recheck 1.86 on 11/06/17 and order was placed for pharamcy to review and dose coumadin accordingly. New/updated medications at discharge: Fentanyl 12 mcg transdermal patch q 72 hr, lidocaine 5% patch q 24 hr, oxycodone 7.5 mg po q 6 hr prn pain, Narcan 4 mg nasal spray as directed prn, MiraLax 17 gm po daily prn constipation, Dulcolax 10 mg rectal BID prn constipation. Discussed side effects of narcotics with patient and family. Recommend patient see his PCP in 1-2 weeks. Patient is stable and ready for discharge to [facility]. Patient and family are agreeable to this plan. - Patient Instructions Diet: Heart Healthy Diet, Usual Diet as Tolerated, Low Sodium Fluid Restriction: 2000 mL Activity: As Tolerated Driving: Do Not Drive Showering/Bathing: May Shower Notify Provider of: Increased Pain, Swelling and Redness, Nausea and/or Vomiting Other/Special Instructions: - Please take all new medications. - Resume routine activities as tolerated per PT/OT. - You are a high fall risk! - Warning: You and your children have been made aware about the dangers associated with your pain regimen. - Follow up with PCP in 1-2 week as needed. - Come back or seek immediate care at the nearest medical facility should your symptoms persist or get worse - Discharge Plan *PRESCRIPTION DRUG MONITORING PROGRAM REVIEWED*: Yes *COPY OF PRESCRIPTION DRUG MONITORING REPORT IN PATIENT DOMONIQUE: Yes Prescriptions/Med Rec: Bisacodyl [Dulcolax] 10 mg RC BID PRN #6 supp.rect PRN Reason: Constipation fentaNYL [Duragesic] 12 mcg TRDERM Q72H #1 patch Lidocaine 5% [Lidoderm 5%] 700 mg TOP Q24H #1 patch Naloxone HCl [Narcan] 4 mg NS ASDIRECTED PRN #1 spray PRN Reason: Opioid Overdose/Unreposiveness oxyCODONE 7.5 mg PO Q6H PRN #20 tablet PRN Reason: Severe Back Pain Polyethylene Glycol 3350 [MiraLAX] 17 gm PO DAILY PRN #1 packet PRN Reason: Constipation Home Medications: Home Meds Acetaminophen [Tylenol Arthritis Pain] 650 mg PO Q6H PRN 06/07/14 [History] Amiodarone [Cordarone] 200 mg PO DAILY 06/07/14 [History] Carvedilol [Coreg] 12.5 mg PO BID 06/07/14 [History] Furosemide [Lasix] 40 mg PO BID 06/07/14 [History] Levothyroxine 200 mcg PO ACBRK 06/07/14 [History] Warfarin [Coumadin] 4 mg PO SUTUTHSA 06/07/14 [History] atorvaSTATin [Lipitor] 10 mg PO BEDTIME 06/07/14 [History] Spironolactone [Aldactone] 12.5 mg PO DAILY 11/30/16 [History] Warfarin [Coumadin] 2 mg PO MOWEFR 11/30/16 [History] Bisacodyl [Dulcolax] 10 mg RC BID PRN #6 supp.rect 11/07/17 [Rx] Lidocaine 5% [Lidoderm 5%] 700 mg TOP Q24H #1 patch 11/07/17 [Rx] Naloxone HCl [Narcan] 4 mg NS ASDIRECTED PRN #1 spray 11/07/17 [Rx] Polyethylene Glycol 3350 [MiraLAX] 17 gm PO DAILY PRN #1 packet 11/07/17 [Rx] fentaNYL [Duragesic] 12 mcg TRDERM Q72H #1 patch 11/07/17 [Rx] oxyCODONE 7.5 mg PO Q6H PRN #20 tablet 11/07/17 [Rx] Patient Handouts: Fall Prevention in the Home, [id number], Back Injury Prevention, [id number], Lumbar Fracture, Opioid Pain Medicine Information, Back Exercises, [id number], Back Pain, Adult, [id number], Opioid Overdose Referrals: Kiel Cornell MD [Primary Care Provider] - - Discharge Summary/Plan Comment DC Time >30 min.: Yes (45) - General Info Date of Service: 11/07/17 Admission Dx/Problem (Free Text: Intractable Back Pain Subjective Update: In to see Christian. He reports his pain has been slightly worse this morning. Denies chest pain, dyspnea, issues. He had a good BM 2 days in a row and felt much better after. Patient reports LOPEZ is stable. Patient states he wishes he could be going home today but does understand the need for stay at [facility] to get stronger prior to returning to home. Functional Status: Reports: Tolerating Diet, Ambulating (with assistance ), Urinating - Review of Systems General: Reports: No Symptoms, Weakness (present but improving). Denies: Fever , Chills HEENT: Reports: Post Nasal Drip. Denies: Sinus Congestion, Sore Throat Pulmonary: Reports: No Symptoms. Denies: Shortness of Breath, Cough Cardiovascular: Reports: Dyspnea on Exertion (stable ). Denies: Chest Pain, Palpitations Gastrointestinal: Reports: No Symptoms. Denies: Abdominal Pain, Constipation, Diarrhea, Nausea, Vomiting Genitourinary: Reports: No Symptoms. Denies: Dysuria, Frequency, Burning Musculoskeletal: Reports: Back Pain Skin: Reports: No Symptoms Neurological: Reports: No Symptoms. Denies: Confusion, Dizziness, Headache, Numbness Psychiatric: Reports: No Symptoms. Denies: Confusion, Depression, Anxiety - Patient Data Vitals - Most Recent: Last Vital Signs Temp 98.1 F 11/07/17 08:02 Pulse 88 11/07/17 08:02 Resp 16 11/07/17 08:02 BP 143/82 H 11/07/17 08:02 Pulse Ox 95 11/07/17 08:02 Weight - Most Recent: 85.185 kg I&O - Last 24 hours: Intake & Output 11/06/17 11/07/17 11/07/17 22:59 06:59 14:59 Intake Total 670 300 Output Total 2475 900 Balance -1805 -600 Lab Results - Last 24 hrs: Laboratory Results - last 24 hr 11/06/17 11/07/17 11/07/17 Range/Units 05:50 05:50 05:50 WBC 7.44 (4.23-9.07) K/mm3 RBC 3.89 L (4.63-6.08) M/mm3 Hgb 13.4 L (13.7-17.5) gm/L Hct 41.2 (40.1-51.0) % MCV 105.9 H (79.0-92.2) fl MCH 34.4 H (25.7-32.2) pg MCHC 32.5 (32.2-35.5) g/dl RDW Std Deviation 51.4 H (35.1-43.9) fL Plt Count 297 (163-337) K/mm3 MPV 9.1 L (9.4-12.3) fl Neut % (Auto) 71.9 H (34.0-67.9) % Lymph % (Auto) 16.0 L (21.8-53.1) % Moca % (Auto) 10.9 (5.3-12.2) % Eos % (Auto) 0.8 (0.8-7.0) Baso % (Auto) 0.1 (0.1-1.2) % Neut # (Auto) 5.35 (1.78-5.38) K/mm3 Lymph # (Auto) 1.19 L (1.32-3.57) K/mm3 Moca # (Auto) 0.81 (0.30-0.82) K/mm3 Eos # (Auto) 0.06 (0.04-0.54) K/mm3 Baso # (Auto) 0.01 (0.01-0.08) K/mm3 Manual Slide Review Abnormal smear PT 19.8 H (9.5-12.1) SECONDS INR 1.84 Sodium 138 (136-145) mEq/L Potassium 4.7 (3.5-5.1) mEq/L Chloride 103 (98-107) mEq/L Carbon Dioxide 28 (21-32) mEq/L Anion Gap 11.7 (5-15) BUN 42 H (7-18) mg/dL Creatinine 1.3 (0.7-1.3) mg/dL Est Cr Clr Drug Dosing 42.90 mL/min Estimated GFR (MDRD) 52 (>60) mL/min BUN/Creatinine Ratio 32.3 H (14-18) Glucose 103 (83-115) mg/dL Calcium 8.8 (8.5-10.1) mg/dL Med Orders - Current: Current Medications Acetaminophen (Tylenol) 650 mg PO Q4H PRN PRN Reason: Pain (Mild 1-3)/fever Last Admin: 11/06/17 00:32 Dose: 650 mg Albuterol/Ipratropium (Duoneb 3.0-0.5 Mg/3 Ml) 3 ml NEB Q4H PRN PRN Reason: Shortness Of Breath/wheezing Amiodarone HCl (Cordarone) 200 mg PO DAILY [facility] Last Admin: 11/06/17 09:16 Dose: 200 mg Bisacodyl (Dulcolax) 5 mg PO DAILY PRN PRN Reason: Constipation Last Admin: 11/05/17 06:24 Dose: 5 mg Carvedilol (Coreg) 12.5 mg PO BID [facility] Last Admin: 11/06/17 21:04 Dose: 12.5 mg Docusate Sodium (Colace) 100 mg PO BID PRN PRN Reason: Constipation Last Admin: 11/04/17 20:49 Dose: 100 mg Fentanyl (Duragesic) 12 mcg TRDERM Q72H [facility] Last Admin: 11/04/17 19:53 Dose: 12 mcg Furosemide (Lasix) 60 mg PO DAILY [facility] Last Admin: 11/06/17 09:16 Dose: 60 mg Hydromorphone HCl (Dilaudid) 0.5 mg IVPUSH Q4H PRN PRN Reason: Severe pain Promethazine HCl 6.25 mg/ (Sodium Chloride) 50.25 mls @ 100 mls/hr IV Q6H PRN PRN Reason: Nausea/Vomiting Levothyroxine Sodium (Synthroid) 200 mcg PO ACBRK [facility] Last Admin: 11/07/17 06:36 Dose: 200 mcg Lidocaine (Lidoderm 5%) 700 mg TOP Q24H [facility] Last Admin: 11/06/17 19:12 Dose: 700 mg Magnesium Hydroxide (Milk Of Magnesia) 30 ml PO Q12H PRN PRN Reason: Constipation Last Admin: 11/05/17 08:27 Dose: 30 ml Miscellaneous Information (Remove Patch) 1 ea TRDERM Q72H [facility] Miscellaneous Information (Remove Patch) 0 ea TRDERM DAILY@0700 [facility] Last Admin: 11/07/17 07:35 Dose: 1 ea Oxycodone HCl (Oxycodone) 7.5 mg PO Q6H PRN PRN Reason: Pain Last Admin: 11/07/17 06:36 Dose: 7.5 mg Atorvastatin 10 Mg 0 each PO BEDTIME [facility] Last Admin: 11/06/17 21:05 Dose: Not Given Polyethylene Glycol (Miralax) 17 gm PO DAILY PRN PRN Reason: Constipation Promethazine HCl (Phenergan) 25 mg PO Q6H PRN PRN Reason: Nausea/Vomiting Senna/Docusate Sodium (Senna Plus) 1 tab PO BID PRN PRN Reason: Constipation Spironolactone (Aldactone) 12.5 mg PO DAILY [facility] Last Admin: 11/06/17 09:16 Dose: 12.5 mg Temazepam (Restoril) 7.5 mg PO BEDTIME PRN PRN Reason: Sleep Last Admin: 11/05/17 21:21 Dose: 7.5 mg Warfarin Sodium (Coumadin) 2 mg PO [facility] Warfarin Sodium (Coumadin) 4 mg PO [facility] Last Admin: 11/05/17 18:58 Dose: 4 mg Warfarin Sodium (Pharmacy To Dose - Warfarin) 0 dose .XX ASDIRECTED PRN PRN Reason: RX TO DOSE COUMADIN Discontinued Medications Hydromorphone HCl (Dilaudid) 0.5 mg IVPUSH ONETIME ONE Stop: 11/04/17 18:25 Last Admin: 11/04/17 18:44 Dose: 0.5 mg Sodium Chloride (Normal Saline) 1,000 mls @ 100 mls/hr IV ASDIRECTED [facility] Last Admin: 11/05/17 01:45 Dose: 100 mls/hr Morphine Sulfate (Morphine) 2 mg IVPUSH ONETIME ONE Stop: 11/04/17 13:24 Last Admin: 11/04/17 14:09 Dose: 2 mg Morphine Sulfate (Morphine) 2 mg IVPUSH Q2H PRN PRN Reason: Pain Last Admin: 11/05/17 02:11 Dose: 2 mg Oxycodone HCl (Oxycodone) 5 mg PO Q4H PRN PRN Reason: Pain (moderate 4-6) Last Admin: 11/06/17 07:16 Dose: 5 mg Oxycodone HCl (Oxycodone) 7.5 mg PO Q4H PRN PRN Reason: Pain (moderate 4-6) Last Admin: 11/06/17 17:36 Dose: 7.5 mg Tramadol HCl (Ultram) 50 mg PO BID PRN PRN Reason: Pain Last Admin: 11/05/17 08:35 Dose: 50 mg Warfarin Sodium (Coumadin) 6 mg PO QPM [facility] Stop: 11/06/17 21:00 Last Admin: 11/06/17 17:37 Dose: 6 mg - Exam Quality Assessment: Denies: Supplemental Oxygen General: Reports: Alert, Oriented, Cooperative, No Acute Distress HEENT: Reports: Pupils Equal, Pupils Reactive, EOMI, Mucous Membr. Moist/[place] Neck: Reports: Supple, Trachea Midline. Denies: Lymphadenopathy Lungs: Reports: Clear to Auscultation, Normal Respiratory Effort. Denies: Crackles, Rales Cardiovascular: Reports: Regular Rate, Regular Rhythm, No Murmurs GI/Abdominal Exam: Normal Bowel Sounds, Soft, Non-Tender, No Organomegaly, Distended (appears to be patient's baseline as no improvement with adequate BMs) (Male) Exam: Deferred Rectal (Males) Exam: Deferred Back Exam: Reports: Normal Inspection, Decreased Range of Motion, Vertebral Tenderness Extremities: Normal Inspection, Normal Range of Motion, Non-Tender, Pedal Edema (2+ b/l LE ) Skin: Reports: Warm, Dry, Intact, Ecchymosis (scattered (patient on chronic coumadin therapy) ) Neurological: Reports: No New Focal Deficit, Cranial Nerves Intact (grossly) Psy/Mental Status: Reports: Alert, Normal Affect, Normal Mood <Masood Huerta T - Last Filed: 11/07/17 14:44> Discharge Summary - Discharge Diagnosis/Problem(s) (1) Compression fracture of lumbar spine SNOMED Code(s): 484089562 ICD Code: S32.000A - WEDGE COMPRESSION FRACTURE OF UNSP LUMBAR VERTEBRA, INIT Status: Acute Onset Date: 06/07/14 (2) Intractable low back pain SNOMED Code(s): 47472450971092659 ICD Code: M54.5 - LOW BACK PAIN Status: Acute (3) Renal insufficiency SNOMED Code(s): 998799301, 871153885 ICD Code: N28.9 - DISORDER OF KIDNEY AND URETER, UNSPECIFIED Status: Chronic (4) Cardiomyopathy SNOMED Code(s): 29659476 ICD Code: I42.9 - CARDIOMYOPATHY, UNSPECIFIED Status: Chronic Priority: Low Qualifiers: Cardiomyopathy type: unspecified Qualified Code(s): I42.9 - Cardiomyopathy , unspecified (5) Frequent falls SNOMED Code(s): 194994664 ICD Code: R29.6 - REPEATED FALLS Status: Chronic - Patient Summary/Data Consults: Consultations 11/04/17 17:59 Consult to Case Management [CONS] Routine Consult to Seed Cleaning Manager [CONS] Routine Consult to Spiritual Care [CONS] Routine OT Evaluation and Treatment [CONS] Routine PT Evaluation and Treatment [CONS] Routine Hospital Course: The patient was seen and examined at bedside in concert with the PA student. The discharge assessment and plans were discussed and agreed upon with me. Spoke to daughter prior to discharge and we went over his pain regimen and stool softeners to prevent constipation. I told her I do not like his "pain regimen" but this seems to have given him the most comfort and relief with his intractable pain. I warned her about the dangers of it but at the same time educated her about overdose and what to do any time he was found unconscious or unresponsive. Lastly, I did mention briefly with them about medical marijuana as an alternative down the road. I took away any remaining home narcotic pain pills for disposal and called his pharmacy to inform them about the new changes on his pain regimen. His PCP, Dr. Cornell was called and updated about his diagnosis, treatment received and regimen on discharge, clinical status and discharge care plan. - Patient Data Vitals - Most Recent: Last Vital Signs Temp 36.7 C 11/07/17 08:02 Pulse 88 11/07/17 08:31 Resp 16 11/07/17 08:02 BP 143/82 H 11/07/17 08:31 Pulse Ox 95 11/07/17 08:02 I&O - Last 24 hours: Intake & Output 11/06/17 11/07/17 11/07/17 22:59 06:59 14:59 Intake Total 670 300 300 Output Total 2475 900 1700 Balance -7010 -600 -1295 Lab Results - Last 24 hrs: Laboratory Results - last 24 hr 11/07/17 11/07/17 Range/Units 05:50 05:50 WBC 7.44 (4.23-9.07) K/mm3 RBC 3.89 L (4.63-6.08) M/mm3 Hgb 13.4 L (13.7-17.5) gm/L Hct 41.2 (40.1-51.0) % MCV 105.9 H (79.0-92.2) fl MCH 34.4 H (25.7-32.2) pg MCHC 32.5 (32.2-35.5) g/dl RDW Std Deviation 51.4 H (35.1-43.9) fL Plt Count 297 (163-337) K/mm3 MPV 9.1 L (9.4-12.3) fl Neut % (Auto) 71.9 H (34.0-67.9) % Lymph % (Auto) 16.0 L (21.8-53.1) % Moca % (Auto) 10.9 (5.3-12.2) % Eos % (Auto) 0.8 (0.8-7.0) Baso % (Auto) 0.1 (0.1-1.2) % Neut # (Auto) 5.35 (1.78-5.38) K/mm3 Lymph # (Auto) 1.19 L (1.32-3.57) K/mm3 Moca # (Auto) 0.81 (0.30-0.82) K/mm3 Eos # (Auto) 0.06 (0.04-0.54) K/mm3 Baso # (Auto) 0.01 (0.01-0.08) K/mm3 Manual Slide Review Abnormal smear Sodium 138 (136-145) mEq/L Potassium 4.7 (3.5-5.1) mEq/L Chloride 103 (98-107) mEq/L Carbon Dioxide 28 (21-32) mEq/L Anion Gap 11.7 (5-15) BUN 42 H (7-18) mg/dL Creatinine 1.3 (0.7-1.3) mg/dL Est Cr Clr Drug Dosing 42.90 mL/min Estimated GFR (MDRD) 52 (>60) mL/min BUN/Creatinine Ratio 32.3 H (14-18) Glucose 103 (83-115) mg/dL Calcium 8.8 (8.5-10.1) mg/dL Med Orders - Current: Current Medications Acetaminophen (Tylenol) 650 mg PO Q4H PRN PRN Reason: Pain (Mild 1-3)/fever Last Admin: 11/06/17 00:32 Dose: 650 mg Albuterol/Ipratropium (Duoneb 3.0-0.5 Mg/3 Ml) 3 ml NEB Q4H PRN PRN Reason: Shortness Of Breath/wheezing Amiodarone HCl (Cordarone) 200 mg PO DAILY [facility] Last Admin: 11/07/17 08:30 Dose: 200 mg Bisacodyl (Dulcolax) 5 mg PO DAILY PRN PRN Reason: Constipation Last Admin: 11/05/17 06:24 Dose: 5 mg Carvedilol (Coreg) 12.5 mg PO BID [facility] Last Admin: 11/07/17 08:31 Dose: 12.5 mg Docusate Sodium (Colace) 100 mg PO BID PRN PRN Reason: Constipation Last Admin: 11/04/17 20:49 Dose: 100 mg Fentanyl (Duragesic) 12 mcg TRDERM Q72H [facility] Last Admin: 11/04/17 19:53 Dose: 12 mcg Furosemide (Lasix) 60 mg PO DAILY [facility] Last Admin: 11/07/17 08:31 Dose: 60 mg Hydromorphone HCl (Dilaudid) 0.5 mg IVPUSH Q4H PRN PRN Reason: Severe pain Promethazine HCl 6.25 mg/ (Sodium Chloride) 50.25 mls @ 100 mls/hr IV Q6H PRN PRN Reason: Nausea/Vomiting Levothyroxine Sodium (Synthroid) 200 mcg PO ACBRK [facility] Last Admin: 11/07/17 06:36 Dose: 200 mcg Lidocaine (Lidoderm 5%) 700 mg TOP Q24H [facility] Last Admin: 11/06/17 19:12 Dose: 700 mg Magnesium Hydroxide (Milk Of Magnesia) 30 ml PO Q12H PRN PRN Reason: Constipation Last Admin: 11/05/17 08:27 Dose: 30 ml Miscellaneous Information (Remove Patch) 1 ea TRDERM Q72H [facility] Miscellaneous Information (Remove Patch) 0 ea TRDERM DAILY@0700 [facility] Last Admin: 11/07/17 07:35 Dose: 1 ea Oxycodone HCl (Oxycodone) 7.5 mg PO Q6H PRN PRN Reason: Pain Last Admin: 11/07/17 12:27 Dose: 7.5 mg Atorvastatin 10 Mg 0 each PO BEDTIME [facility] Last Admin: 11/06/17 21:05 Dose: Not Given Polyethylene Glycol (Miralax) 17 gm PO DAILY PRN PRN Reason: Constipation Promethazine HCl (Phenergan) 25 mg PO Q6H PRN PRN Reason: Nausea/Vomiting Senna/Docusate Sodium (Senna Plus) 1 tab PO BID PRN PRN Reason: Constipation Spironolactone (Aldactone) 12.5 mg PO DAILY [facility] Last Admin: 11/07/17 08:31 Dose: 12.5 mg Temazepam (Restoril) 7.5 mg PO BEDTIME PRN PRN Reason: Sleep Last Admin: 11/05/17 21:21 Dose: 7.5 mg Warfarin Sodium (Coumadin) 2 mg PO MOWEFR [facility] Warfarin Sodium (Coumadin) 4 mg PO SUTUTHSA [facility] Last Admin: 11/05/17 18:58 Dose: 4 mg Warfarin Sodium (Pharmacy To Dose - Warfarin) 0 dose .XX ASDIRECTED PRN PRN Reason: RX TO DOSE COUMADIN Discontinued Medications Hydromorphone HCl (Dilaudid) 0.5 mg IVPUSH ONETIME ONE Stop: 11/04/17 18:25 Last Admin: 11/04/17 18:44 Dose: 0.5 mg Sodium Chloride (Normal Saline) 1,000 mls @ 100 mls/hr IV ASDIRECTED [facility] Last Admin: 11/05/17 01:45 Dose: 100 mls/hr Morphine Sulfate (Morphine) 2 mg IVPUSH ONETIME ONE Stop: 11/04/17 13:24 Last Admin: 11/04/17 14:09 Dose: 2 mg Morphine Sulfate (Morphine) 2 mg IVPUSH Q2H PRN PRN Reason: Pain Last Admin: 11/05/17 02:11 Dose: 2 mg Oxycodone HCl (Oxycodone) 5 mg PO Q4H PRN PRN Reason: Pain (moderate 4-6) Last Admin: 11/06/17 07:16 Dose: 5 mg Oxycodone HCl (Oxycodone) 7.5 mg PO Q4H PRN PRN Reason: Pain (moderate 4-6) Last Admin: 11/06/17 17:36 Dose: 7.5 mg Tramadol HCl (Ultram) 50 mg PO BID PRN PRN Reason: Pain Last Admin: 11/05/17 08:35 Dose: 50 mg Warfarin Sodium (Coumadin) 6 mg PO QPM [facility] Stop: 11/06/17 21:00 Last Admin: 11/06/17 17:37 Dose: 6 mg
[2017-11-08] MEDS ORDERED: Warfarin 2 MG Tab PO SCH (18:00)
== END 2017-11-07 13:15 | DRG 552 ==
LOC: JD.ED 12:19 → JD.MS 15:59
PROVIDERS: ADMIT Internal Medicine; ATTEND Internal Medicine
DX: M54.5 Low back pain (principal); I42.9 Cardiomyopathy, unspecified; G89.29 Other chronic pain; R53.1 Weakness; E78.00 Pure hypercholesterolemia, unspecified; R29.6 Repeated falls; N28.9 Disorder of kidney and ureter, unspecified; M80.08XD Age-related osteoporosis with current pathological fracture, vertebra(e), subsequent encounter for fracture with routine healing; M19.90 Unspecified osteoarthritis, unspecified site; E78.5 Hyperlipidemia, unspecified; M80.08XG Age-related osteoporosis with current pathological fracture, vertebra(e), subsequent encounter for fracture with delayed healing; E03.9 Hypothyroidism, unspecified; N40.0 Benign prostatic hyperplasia without lower urinary tract symptoms; H91.90 Unspecified hearing loss, unspecified ear; H54.7 Unspecified visual loss; Z86.74 Personal history of sudden cardiac arrest; Z95.810 Presence of automatic (implantable) cardiac defibrillator; Z87.891 Personal history of nicotine dependence; Z79.01 Long term (current) use of anticoagulants; Z79.899 Other long term (current) drug therapy
CPT/HCPCS: 36415; 80053; 81001; 83735; 85025; 85610; 86140; 96361; 96374; 99284; J2270; J7040; 80048; 96376; 97110-GO; 97110-GP; 97116-GP; 97162-GP; 97166-GO; 97530-GO; 97530-GP; 99285; A9270-GY; J1170